=== PATIENT | female | born 1980 | race Caucasian/White ===

== ENCOUNTER 2019-12-25 09:01 | Outpatient (RCR) | payer OTHER, SELFPAY ==
[2019-12-11 10:09] VITALS: BP 109/58; PULSE 85
[2019-12-25 09:30] VITALS: BP 111/61; PULSE 88
== END 2020-01-01 07:40 | disposition home or self-care (01) ==
LOC: ANHOBOP 09:01
PROVIDERS: PCP Family Medicine; Visit Provider Student in an Organized Health Care Education/Training Program
DX: O09.513 Supervision of elderly primigravida, third trimester (principal); Z3A.36 36 weeks gestation of pregnancy; Z3A.38 38 weeks gestation of pregnancy
CPT/HCPCS: 59025; A9270; J2210; J2590

== ENCOUNTER 2019-12-29 12:36 | Outpatient (CLI) | payer OTHER, SELFPAY ==
[2019-12-29 13:00] LABS: Hematocrit 32.4 % (37.0-47.0); Hemoglobin 10.6 g/dL (12.0-15.0); Mean Corpuscular HGB Conc 32.7 g/dl (32-36); Mean Corpuscular Hemoglobin 29.5 pg (26-34); Mean Corpuscular Volume 90.3 fl (80-100); Mean Platelet Volume 9.5 fl (7.4-10.4); Platelet Count Result 214 k/mm3 (150-375); Red Blood Count 3.59 M/mm3 (4.2-5.4); Red Cell Distribution Width 13.1 % (11.5-14.5); White Blood Count 9.7 K/mm3 (4.5-10.0)
[2019-12-31 07:27] LABS: Rapid Plasma Reagin Non-Reactive (NonReactive)
== END 2019-12-29 12:37 | disposition home or self-care (01) ==
LOC: ANHLAB 12:39
PROVIDERS: PCP Family Medicine; Visit Provider Obstetrics & Gynecology
DX: O34.219 Maternal care for unspecified type scar from previous cesarean delivery (principal); Z01.812 Encounter for preprocedural laboratory examination; Z3A.00 Weeks of gestation of pregnancy not specified
CPT/HCPCS: 36415; 85027; 86592; 86850; 86900; 86901

== ENCOUNTER 2019-12-31 05:40 | Inpatient (IN) | payer OTHER, SELFPAY ==
--- NOTE | 2019-12-01 14:14 | PC.NURSE ---
VERIFIED WITH OR SCHEDULE AND PATIENT--C/S ON 12/31/19 AT 0730 PATIENT GIVEN REQUISITION FOR LAB DRAW ON 12/29/19 PATIENT STATES SHE IS A LITTLE ANXIOUS ABOUT HAVING A SPINAL BECAUSE ONE SPINAL SHE COULD LIFT HER LEGS OFF THE TABLE AND ONE SPINAL ONLY LASTED WHILE IN SURGERY ROOM
--- NOTE | 2019-12-30 17:22 | WPDANESEPPF ---
Anes - Initial Pre Proc Eval Procedure: Operation Date: 12/31/19 07:30 Proposed Procedures p Repeat Section - Tariq Guevara MD Date/Time: 12/30/19 17:22 Surgeon: Tariq Guevara MD Pre Op Diagnosis: SECTION Patient Data Age: 39 Gender: F Height: Weight: Allergies Allergy/AdvReac Type Severity Reaction Status Date / Time oxycodone AdvReac Mild HALLUCINATIONS Verified 12/25/19 08:22 HEADACHES Home Medications Medication Instructions Recorded Confirmed Type vits 75-iron 28 mg-folic 1 pkg PO DAILY #60 each 09/17/19 12/31/19 Rx acid 800 mcg-omega-3 oral combo pack albuterol sulfate 90 mcg/actuation 1 puff INHALATION Q4H PRN #1 device 10/08/19 12/31/19 Rx aerosol inhaler Patient hx anesthesia problems: other (2 spinals did not work as well) Family hx anesthesia problems: none PMFSH Past Medical History Medical History Asthma Surgical History Surgical History (Updated 12/30/19 @ 17:21 by John Cohen DO) History of x4 Social History Social History Smoking status: Never smoker Second hand tobacco smoke exposure: No Alcohol intake: current Substance use: never Spiritual care concerns: No Anes - Eval Final PreProcedure Day of Procedure 12/30/19 17:23 Patient weight: overweight Heart: regular rate and rhythm Lungs: clear to auscultation and normal air movement Airway: Mallampati scale class II Neurological: alert and oriented Last oral intake: >/= 8 hours ASA classification: II Emergent: no Anesthetic plan: proceed Anesthesia type and monitoring: regional spinal and standard monitoring Informed Consent: The patient's anesthetic plan and its attendant risks and benefits were discussed with the patient/family/POA. Questions were solicited and answers provided to the satisfaction of the patient/family/POA.
[2019-12-31] VITALS (82 sets, daily range): BP systolic 75–138; BP diastolic 39–85; PULSE 57–115; RESP 11–25; TEMP 36.6–38.3; O2SAT 81–100; BMI 26.8
--- NOTE | ~2019-12-31 | CT_ITS ---
EXAMINATION: CT abdomen pelvis w con DATE: 01/03/2020 10:33 INDICATION: Left hip pain. TECHNIQUE: Computed tomography (CT) of the abdomen and pelvis was performed with 100 mL Omnipaque 350 intravenous contrast. Automated exposure control and iterative reconstruction technique were employe d. The dose-length product was 1041.21 mGy-cm. COMPARISON: None. FINDINGS: The visualized portions of the lung bases demonstrate mild atelectasis. There are trace ple ural effusions. The heart size is normal. No pericardial effusion. The liver, gallbladder, spleen, pa ncreas, and adrenal glands are normal. The kidneys demonstrate striated nephrograms, consistent with pyelonephritis. There is mild right hydronephrosis and hydroureter. The uterus is enlarged, consisten t with recent . The endometrial complex measures 10 mm in thickness. There is low-attenuatio n involving the low anterior uterine segment measuring 5.7 x 1.9 x 2.3 cm, likely changes of section and hematoma. There is fluid and gas involving the rectus sheath in the area of the recent s urgery. The fluid collection measures 8.8 x 1.3 x 13.2 cm. There are no dilated loops of bowel. The a ppendix is not visualized. There are no pathologically enlarged lymph nodes. There is trace pelvic as cites. There is 6 degrees lumbar dextrocurvature. IMPRESSION: 1. 8.8 x 1.3 x 13.2 cm fluid collection involving the rectus sheath, likely hematoma. Changes of cesa rean section and hematoma involving the low anterior uterine segment. 2. Bilateral striated nephrograms, consistent with pyelonephritis. 3. Mild right hydronephrosis and hydroureter secondary to the enlarged uterus. Reviewed, dictated and finalized at location A. ER PRODUCTION MACHINE OPERATOR IMPRESSION: 1. 8.8 x 1.3 x 13.2 cm fluid collection involving the rectus sheath, likely hem atoma. Changes of section and hematoma involving the low anterior uter ine segment. 2. Bilateral striated nephrograms, consistent with pyelonephritis. 3. Mild right hydronephrosis and hydroureter secondary to the enlarged uterus.
--- NOTE | ~2019-12-31 | XR_ITS ---
EXAMINATION: XR chest 2V 01/01/2020 17:01 INDICATION: Shortness of breath and cough. History of asthma. PROCEDURE: 2 view chest COMPARISON: No prior studies for comparison. FINDINGS: The lungs are clear. The cardiomediastinal silhouette is within normal limits. There are no pleural effusions. There is no pneumothorax suspected. IMPRESSION: 1: NO ACUTE CARDIOPULMONARY DISEASE. Reviewed, dictated and finalized at location A. HAND
[2019-12-31] MEDS: ceFAZolin 2 GM/D5W 50 ML 2 GM/50 ML BAG IVPB (06:24)
[2019-12-31] MEDS: LACTATED RINGERS 1,000 ML 125 ML IV CONT (06:25)
--- NOTE | 2019-12-31 06:47 | LDADM ---
This patient, Shabana Case, was admitted to Labor/Delivery/Recovery 120 on 12/31/19 at 05:40. Plans for labor, pain management and were discussed with patient. Patient/family oriented to hospital policies and general routines including ID bracelet, bed and alarms, visiting hours, pain management, procedures, bathroom and other care routines, personal items, smoking policy, room service/diet and guest tray routines, security routines, and visiting hours. Patient/Family are encouraged to report perceived risks to care and to ask questions if they do not understand what they are told or what they should do. See OBIX for further documentation.
--- NOTE | 2019-12-31 07:18 | PM.IMHP ---
H&P: HPI History of Present Illness Chief complaint: SECTION Narrative: Shabana Case is a 39 year old female admitted for elective repeat cesearean section. PNC significant for advanced Maternal age, 4 prior cesearean sections, history of labor at 34 weeks with 1st . She declined Keerthi a for this . She has a history of mild asthma which is not bothered her during the . Ob labs first-trimester hemoglobin hematocrit 12 and 37 platelets 230, hepatitis-B surface antigen negative, hepatitis-C antibody negative, hemoglobin electrophoresis normal hemoglobin a, in NIPT normal, UA negative, HIV negative, rubella immune, blood type B positive, antibody screen negative, vitamin-D 38, varicella immune, group B strep negative, 3rd trimester HIV and RPR negative. She was recommended for repeat . Does not desire permanent sterilization at the time. Her is considering a vasectomy. Review of Systems Review of Systems: All systems reviewed & are unremarkable except as noted in HPI and below Constitutional: Constitutional: Reports no additional constitutional complaints and Denies headache(s) Eyes: Eyes: Denies spots in vision ENT: Reports system reviewed and no additional complaints, except as documented and Denies headache(s) Cardiovascular: Cardiovascular: Denies chest pain and Denies dyspnea Respiratory: Respiratory: Denies dyspnea Gastrointestinal: Gastrointestinal: Reports no additional gastrointestinal complaints Genitourinary: Genitourinary: Reports amenorrhea Musculoskeletal: Musculoskeletal: Reports no additional musculoskeletal complaints Integumentary/Breasts: Skin/Breast: Denies breast mass and Denies rash Neurologic: Denies headache(s) Psychiatric: Psychiatric: Reports no additional psychiatric complaints [facility] Past Medical History Medical History Asthma Delivery by elective section Surgical History Surgical History History of x4 Family History Family History Mother Hypertension Family history of elevated blood lipids Family history of diabetes mellitus in first degree relative Grandparent Cerebrovascular accident, Onset Age: 70 Family history of coronary artery disease, Onset Age: 85 Diabetes mellitus Social History Social History Smoking status: Never smoker Second hand tobacco smoke exposure: No Alcohol intake: current Substance use: never Spiritual care concerns: No Meds Home Medications and Allergies Home Medications Medication Instructions Recorded Confirmed Type vits 75-iron 28 mg-folic 1 pkg PO DAILY #60 each 09/17/19 12/31/19 Rx acid 800 mcg-omega-3 oral combo pack albuterol sulfate 90 mcg/actuation 1 puff INHALATION Q4H PRN #1 device 10/08/19 12/31/19 Rx aerosol inhaler Allergies Allergy/AdvReac Type Severity Reaction Status Date / Time oxycodone AdvReac Mild HALLUCINATIONS Verified 12/25/19 08:22 HEADACHES Vital Signs Vital Signs - 24 hr 12/31/19 06:32 Pulse Rate 102 H Blood Pressure 131/77 Exam Const: General: no acute distress HENMT: Head: normocephalic and atraumatic Eyes: General: appearance normal, both eyes and all related structures Resp: Effort & Inspection: normal respiratory effort Cardio: Rate: regular rate GI: Other: Gravid no fundal tenderness no right upper quadrant pain Skin: General skin exam: no rashes or lesions noted Neuro: Cognition (Neuro): normal cognition Extrem: General: normal to inspection Psych: Mental Status: mental status grossly normal Assessment and Plan Assessment and plan (1) Delivery by elective section: Code(s): O82 - Encounter for donna
--- NOTE | 2019-12-31 07:20 | PM.IMHP ---
H&P: HPI History of Present Illness Chief complaint: SECTION Narrative: Shabana Case is a 39 year old female Review of Systems Review of Systems: All systems reviewed & are unremarkable except as noted in HPI and below Constitutional: Constitutional: Reports no additional constitutional complaints and Denies headache(s) Eyes: Eyes: Denies spots in vision ENT: Reports system reviewed and no additional complaints, except as documented and Denies headache(s) Cardiovascular: Cardiovascular: Denies chest pain and Denies dyspnea Respiratory: Respiratory: Denies dyspnea Gastrointestinal: Gastrointestinal: Reports no additional gastrointestinal complaints Genitourinary: Genitourinary: Reports amenorrhea Musculoskeletal: Musculoskeletal: Reports no additional musculoskeletal complaints Integumentary/Breasts: Skin/Breast: Denies breast mass and Denies rash Neurologic: Denies headache(s) Psychiatric: Psychiatric: Reports no additional psychiatric complaints PMFSH Past Medical History Medical History Asthma Delivery by elective section Surgical History Surgical History History of x4 Family History Family History Mother Hypertension Family history of elevated blood lipids Family history of diabetes mellitus in first degree relative Grandparent Cerebrovascular accident, Onset Age: 70 Family history of coronary artery disease, Onset Age: 85 Diabetes mellitus Social History Social History Smoking status: Never smoker Second hand tobacco smoke exposure: No Alcohol intake: current Substance use: never Spiritual care concerns: No Meds Home Medications and Allergies Home Medications Medication Instructions Recorded Confirmed Type vits 75-iron 28 mg-folic 1 pkg PO DAILY #60 each 09/17/19 12/31/19 Rx acid 800 mcg-omega-3 oral combo pack albuterol sulfate 90 mcg/actuation 1 puff INHALATION Q4H PRN #1 device 10/08/19 12/31/19 Rx aerosol inhaler Allergies Allergy/AdvReac Type Severity Reaction Status Date / Time oxycodone AdvReac Mild HALLUCINATIONS Verified 12/25/19 08:22 HEADACHES Vital Signs Vital Signs - 24 hr 12/31/19 06:32 Pulse Rate 102 H Blood Pressure 131/77
[2019-12-31 07:32] LABS: HIV 1/2 Ab P24 Ag Result Negative (Negative)
--- NOTE | 2019-12-31 09:18 | PM.PROC ---
Procedure Note - Detailed Date of procedure: 01/02/20 Pre-op diagnosis: SECTION 1. Elective repeat cesearean section. Post-op diagnosis: same Procedure performed: Repeat low transverse cesearean section Description of procedure: After informed consent was obtained patient was taken to the operating room and adequate spinal anesthesia was administered. She was placed in supine position and prepped and draped in sterile fashion. heart tones were auscultated prior to sterile draping. Attention was turned to the abdomen and a Pfannenstiel skin incision was made along her prior Pfannenstiel scar. The scarred subcutaneous tissue was dissected from the fascia with scalpel and cautery. The fascia was incised in the midline and the scarred fascia was dissected from the rectus muscle bilaterally with Christianson scissors. The fascia was from rectus muscle superiorly and inferiorly bluntly and sharply. The midline was identified and the peritoneum was entered with metzenbaum scissors.. The uterus had an omental adhesion band to the anterior abdominal wall, this was lysed with cautery. The pelvic organs were visualized. The lower uterine segment and vesico-uterine peritoneum was visualized. The bladder had some scarring to lower uterine segment. A bladder flap was made. A low-transverse uterine incision was made and was extended bluntly. The amniotic cavity was entered. A large amount of clear fluid was noted. The incision was extended bluntly and the head and the rest the infant was delivered. . The was vigorously crying upon delivery. The cord was doubly clamped and cut and the infant was handed to nursery staff in attendance. Cord segment was obtained for cord gases. Cord blood was obtained. The placenta was removed manually. The uterine cavity was sponge curetted. The uterus was noted to have good tone. The uterus was exteriorized the incision of the uterus was closed in a running locking fashion with 0 Vicryl and a 2nd umbricating stitch of 0 Vicryl. Two figure of eight stitches were used at the mid right of uterine incision for hemostasis. Hemostasis was noted. The posterior cul-de-sac was irrigated. Uterus was placed back into the abdomen. The paracolic gutters were irrigated the uterine incision was inspected again and noted to be hemostatic. Urine was noted to be clear in the schneider bag. Interceed adhesion barrier was placed at the lower uterine segment and anterior uterus. The omentum was placed over the site. The peritoneum was approximated in the midline with several sutures of [id number] of 3 O Vicryl. The fascia was closed in a running fashion with 0 Vicryl with 2 sutures. Hemostasis was noted. Paracolic gutters were irrigated. The subcutaneous tissue was irrigated hemostasis obtained with cautery. The skin incision was closed with ethel. Mepiliex dressing was applied. The uterus was firm at -2 umbilicus. The QBL was 775cc. Sponge count was correct x3. The patient tolerated procedure well and was taken to recovery in stable condition. Anesthesia: spinal Surgeon: Tariq Guevara MD Estimated blood loss (mL): 775 Urine output (mL): 100 Drains: No Packing: No Pathology: none sent Complications: No immediate complications Condition: stable Disposition: floor (Recovery) Findings: Normal uterus, small adhesion of omentum to anterior abdominal wall, normal ovaries, male , 8lb8oz.
[2019-12-31] MEDS: MORPHINE SULFATE 2 MG/ML INJ IV PUSH (10:06)
--- NOTE | 2019-12-31 10:55 | PC.NURSE ---
Patient transferred to post room #290 per stretcher from labor and delivery. Support person present. Oriented to unit, room, information board, rooming in, admission packet and security measures. Patient verbalizes understanding.
[2019-12-31] MEDS: HYDROMORPHONE HCL 1 MG/ML INJ 0.2 MG IV PUSH ×2 (11:48→16:25)
[2019-12-31] MEDS: KETOROLAC 30 MG/ML VIAL (*BKC) IV PUSH (13:52)
[2019-12-31] MEDS: DEXTROSE 5%/0.45% SOD CHL 1,000 ML 125 ML IV CONT (15:23)
--- NOTE | 2019-12-31 16:40 | PC.NURSE ---
Dr. Guevara at bedside regarding pt severe pain and distended, firm abdomen. Pt blood pressures are low and she feels like she is going to pass out. Pt very anxious. Oxygen given at 3L per nasal cannula and head of bed lowered. Medications and labs ordered and consent signed for exploratory laparotomy per Dr. Guevara's orders. Anesthesia notified by Dr. Guevara.
--- NOTE | 2019-12-31 16:51 | PM.OBPNVD ---
OB - PN: Subj Subjective Date/time seen: 12/31/19 16:51 Interval history: I was called due to patient having acute severe pain. It started approximately 1635. She called out for pain. She was pale. O2sat 100. Pulse 70. On exam her abdomen is distended , tender diffusely,uterus palpable at Umb, there is some bloody drainage from her right side of incision. OB - PN: Obj Data Labs Labs: Laboratory Results - last 24 hr 12/31/19 06:29 HIV 1&2 Ab/P24 Ag 4thGn Negative OB - PN A/P Assessment and Plan (1) Post-op pain: Code(s): G89.18 - Other acute postprocedural pain Status: Acute Assessment and Plan: She was informed that I suspect she may have some intraabdominal bleeding and recommned to take her for exploratory laparotomy. Discussed risk benefit of proceeding with this and risk of continued undiagnosed bleeding if not done. She agrees to exploratory laparotomy. Time Spent With Patient Time: Total time spent is greater than 50% in coordination of care (as documented) at patient's floor/unit and/or counseling patient: Exam : Other: incision small amount drainage, red on dressing.\ Abdomen, distended, guarding. Ext nontender.
[2019-12-31] MEDS: MIDAZOLAM HCL 2 MG/2 ML VIAL 1 MG IV PUSH (16:55)
[2019-12-31 16:56] LABS: Basophils Absolute Auto 0.1 K/mm3 (0.0-0.1); Basophils Percent Auto 0.4 % (0.2-1.2); Eosinophils Percent Auto 0.1 % (0-4.4); Hematocrit 26.7 % (37.0-47.0); Hemoglobin 8.9 g/dL (12.0-15.0); Immature Granulocyte Absolute 0.21 K/mm3 (0.00-0.031); Immature Granulocyte Percent A 1.1 % (0-0.5); Lymphocytes Absolute Auto 1.97 K/mm3 (0.9-3.2); Lymphocytes Percent Auto 9.9 % (18.3-44.2); Mean Corpuscular HGB Conc 33.3 g/dl (32-36); Mean Corpuscular Hemoglobin 30.1 pg (26-34); Mean Corpuscular Volume 90.2 fl (80-100); Mean Platelet Volume 10.1 fl (7.4-10.4); Monocytes Absolute Auto 1.6 K/mm3 (0.1-0.6); Neutrophils Absolute Auto 16.1 K/mm3 (1.3-6.7); Neutrophils Percent Auto 80.5 % (45.5-73.1); Platelet Count Result 254 k/mm3 (150-375); Red Blood Count 2.96 M/mm3 (4.2-5.4); Red Cell Distribution Width 13.2 % (11.5-14.5)
--- NOTE | 2019-12-31 17:14 | WPDANESEFPP ---
Anes - Eval Final PreProcedure Day of Procedure 12/31/19 17:14 Patient weight: overweight Heart: regular rate and rhythm Lungs: clear to auscultation and normal air movement Airway: Mallampati scale class II Neurological: alert and oriented Last oral intake: >/= 8 hours ASA classification: II Emergent: yes Anesthetic plan: proceed Anesthesia type and monitoring: general ETT and standard monitoring Other findings: Exploratory lap for post op bleeding Informed Consent: The patient's anesthetic plan and its attendant risks and benefits were discussed with the patient/family/POA. Questions were solicited and answers provided to the satisfaction of the patient/family/POA.
--- NOTE | 2019-12-31 17:22 | PC.NURSE ---
Patient transferred to PACU recovery per bed. Report given to Dr. Cohen. Dr. Guevara aware that patient has been transferred.
[2019-12-31] MEDS: ceFAZolin SODIUM 1 GM VIAL 2 GM IV PUSH (17:36)
[2019-12-31] MEDS: METHYLERGONOVINE MALEATE 0.2 MG/ML VIAL IV PUSH (18:11)
[2019-12-31] MEDS: TRANEXAMIC ACID 1,000 MG/10 ML AMPUL 1000 MG IV PUSH ×2 (18:11→19:05)
[2019-12-31] MEDS: OXYTOCIN 10 UNITS/ML VIAL IM (18:27)
[2019-12-31] MEDS: MISOPROSTOL 200 MCG TABLET 1000 MCG XX (18:28)
[2019-12-31 19:02] LABS: Prothrombin Time 13.3 Seconds (11.1-14.7)
[2019-12-31 19:03] LABS: Partial Thromboplastin Time 27.7 SECONDS (22.3-36.8)
[2019-12-31] MEDS: SODIUM CHLORIDE 0.9% IV 1,000 ML 100 ML IV CONT (19:56)
--- NOTE | 2019-12-31 20:39 | PM.PROC ---
Procedure Note - Detailed Date of procedure: 01/02/20 Pre-op diagnosis: SECTION Severe post op pain Post-op diagnosis: other ( intraabdominal hemorrhage) Procedure performed: Exploratory laparotomy Description of procedure: After informed consent was obtained. Patient was taken to operating room and general endotracheal anesthesia was performed. She was prepped and draped in sterile fashion. Attention was turned to the abdomen. [place] were removed. Fascial stitches were removed. Upon removing the fascial stitches, large amount of blood clot diffusely on the rectus muscle. Large amount of dark blood was evacuated. The peritoneal stiches were removed. There was large amount of clot and dark blood intraabdominally. This was evacuated. The uterus was palpated and was very soft. There was no active bleeding from the incision. The uterus was exteriorized and manual compression of uterus was applied to help with tone. At that time a large clot was felt to pass to the lower uterine segment. The uterine incision sutures were removed and large amount of blood and clot was removed. The uterus was sponge curretted. The tone continued to be boggy. She was given 0.2mg IM Methergine. She was also given 1000mg of TXA when the large clot was seen after fascial sutures were removed. She was given 1000ug cytotec and also was given 10units of Pitocin IM. Prior to this a B koroma stitch with 0 monopryl, was performed and the tone improved after 30minutes with using the above medication. The uterine incision was closed during this with figure of eight sutures and a running suture of 0 vicryl. Hemostasis was noted at the site. The of uterus was improved. There continue to be dark blood collecting in the right paracolic gutters. Clots were removed from the posterior culdesac and paracolic gutters. The peritoneal edges were inspected. There was noted to be a slow ooze along the right peritoneal edge. There was some small vessels there which did not appear to be actively bleeding. They were cauterized. She was placed in mild trendelenburg position to better visualize the area at the right upper peritoneal edge which had small accumulation of dark blood. Pressure was applied to area with sponge stick. Surgisil was applied to this area and it was visualized for 5minutes and no active bleeding. Sponge count was correct. The uterine tone continued to be firm. Surgisil was placed at the right muscle belly. Hemostasis noted. The fascia was closed with two sutures of O Vicryl. Hemostasis was noted. The skin incision was irrigated. Hemostasis obtained with cautery and the skin was closed with ethel. Sponge count correct x 2. The patient was extubated in OR and taken to recovery in stable condition. It was estimated that 3Liters of blood was it muscle and intraabdominal area. Anesthesia: GETA Surgeon: Tariq Guevara MD Frequency Checker: Alfonso Burns Estimated blood loss (mL): 3,000 IV fluids (mL): 2,000 (1300cc crystalloid, 700cc PRBC, she received 2 units PRBC in OR) Urine output (mL): 250 Drains: No Packing: No Pathology: none sent Complications: No immediate complications Condition: stable Disposition: PACU Findings: Will send to ICU after recovery due to large EBL.
[2019-12-31] MEDS: HYDROMORPHONE HCL 1 MG/ML INJ 0.25 MG IV PUSH (21:33)
[2019-12-31 22:13] LABS: Hematocrit 38.6 % (37.0-47.0); Hemoglobin 13.2 g/dL (12.0-15.0); Mean Corpuscular HGB Conc 34.2 g/dl (32-36); Mean Corpuscular Hemoglobin 29.9 pg (26-34); Mean Corpuscular Volume 87.3 fl (80-100); Mean Platelet Volume 9.7 fl (7.4-10.4); Platelet Count Result 173 k/mm3 (150-375); Red Blood Count 4.42 M/mm3 (4.2-5.4); Red Cell Distribution Width 13.2 % (11.5-14.5); White Blood Count 25.8 K/mm3 (4.5-10.0)
[2019-12-31 22:28] LABS: INR 1.1; Prothrombin Time 13.5 Seconds (11.1-14.7)
[2019-12-31 22:34] LABS: Band Neutrophils Percent 15 % (0-6); Lymphocytes Absolute Manual 1.54 K/mm3 (1.1-4.5); Monocytes Absolute Manual 0.25 K/mm3 (0.1-0.90); Monocytes Percent Manual 1 % (3-9); Neutrophils Absolute Manual 23.99 K/mm3 (1.7-7.2); Neutrophils Percent Manual 78 % (46-73); Platelet Estimate Adequate (Adequate); Total Cells Counted 100
[2019-12-31 22:57] LABS: Fibrinogen 218 mg/dl (215-510)
[2019-12-31] MEDS: SODIUM CHLORIDE 0.9% IV 1,000 ML 125 ML IV CONT (23:29)
[2019-12-31] MEDS: SODIUM CHLORIDE 0.9% IV 250 ML 30 ML IV CONT (23:30)
[2020-01-01] VITALS (15 sets, daily range): BP systolic 107–134; BP diastolic 51–76; PULSE 75–105; RESP 13–23; TEMP 36.6–38.2; O2SAT 96–100
[2020-01-01] MEDS: MORPHINE SULFATE 2 MG/ML INJ IV PUSH (01:38)
[2020-01-01] MEDS: METHYLERGONOVINE MALEATE 0.2 MG/ML VIAL IM ×3 (01:38→13:50)
[2020-01-01] MEDS: MORPHINE SULFATE 4 MG/ML INJ IV PUSH ×2 (04:20→07:51)
[2020-01-01 04:36] LABS: Hematocrit 35.7 % (37.0-47.0); Hemoglobin 12.6 g/dL (12.0-15.0); Mean Corpuscular HGB Conc 35.3 g/dl (32-36); Mean Corpuscular Hemoglobin 30.2 pg (26-34); Mean Corpuscular Volume 85.6 fl (80-100); Mean Platelet Volume 9.6 fl (7.4-10.4); Platelet Count Result 162 k/mm3 (150-375); Red Blood Count 4.17 M/mm3 (4.2-5.4); Red Cell Distribution Width 13.5 % (11.5-14.5); White Blood Count 23.4 K/mm3 (4.5-10.0)
[2020-01-01 04:47] LABS: INR 1.1; Prothrombin Time 14.1 Seconds (11.1-14.7)
[2020-01-01 04:48] LABS: Partial Thromboplastin Time 24.8 SECONDS (22.3-36.8)
[2020-01-01 05:03] LABS: Blood Urea Nitrogen 14 mg/dL (7-17); Calcium 7.4 mg/dL (8.4-10.2); Carbon Dioxide 19 mmol/L (22-30); Chloride 103 mmol/L (98-107); Estimated CRCL calculation 127 ml/min; Estimated Glomerular Filt Rate > 60; Glucose 111 mg/dL (65-105); Potassium 3.3 mmol/L (3.4-5.0); Sodium 130 mmol/L (137-145)
[2020-01-01] MEDS: SODIUM CHLORIDE 0.9% IV 1,000 ML 125 ML IV CONT (07:56)
[2020-01-01] MEDS: MAGNESIUM SULF 2 GM/WATER 50ML 2 GM/50 ML BAG IVPB (07:57)
[2020-01-01 09:18] LABS: Hematocrit 34.6 % (37.0-47.0); Hemoglobin 11.9 g/dL (12.0-15.0); Mean Corpuscular HGB Conc 34.4 g/dl (32-36); Mean Corpuscular Hemoglobin 30.1 pg (26-34); Mean Corpuscular Volume 87.4 fl (80-100); Mean Platelet Volume 9.9 fl (7.4-10.4); Platelet Count Result 156 k/mm3 (150-375); Red Blood Count 3.96 M/mm3 (4.2-5.4); Red Cell Distribution Width 13.9 % (11.5-14.5); White Blood Count 23.9 K/mm3 (4.5-10.0)
--- NOTE | 2020-01-01 09:48 | WPDANLDNPN2 ---
Anes-Prog Note L&D-Neuraxial Date/Time: 01/01/20 09:48 Neuraxial medications: intrathecal PF morphine Opiod-related complaints: none Patient feedback: Patient satisfied with post-operative pain management.
--- NOTE | 2020-01-01 09:48 | WPDANLDPN2 ---
Anes-Prog Note L&D Date/Time: 01/01/20 09:48 Comfortable throughout: section Neuraxial method: spinal Epidural/Spinal procedure site: clean & non-tender Neuro status: Neuro function grossly intact. Cardiovascular status: other (patient had a 3L blood loss postoperatively, was taken back to the OR for exploration, and given 2 units of PRBC. Patient taken to ICU overnight for close monitoring.) Respiratory status: normal Airway patency: baseline Mental status: baseline Post-Op hydration status: normal Vital Signs: Last Vital Signs Temp 36.9 C 01/01/20 08:00 Pulse 75 01/01/20 08:00 Resp 14 01/01/20 08:00 BP 116/61 01/01/20 08:00 Pulse Ox 99 01/01/20 08:00 I/O: Intake & Output 12/31/19 01/01/20 01/01/20 23:59 07:59 15:59 Intake Total 2800 1280 Output Total 75 550 Balance 6468 730 Patient feedback: Patient satisfied with anesthetic care.
--- NOTE | 2020-01-01 09:59 | PM.OBPNVD ---
OB - PN: Subj Subjective Date/time seen: 12/31/19 1645 Interval history: I was called due to patient having acute severe pain. It started approximately 1635. She called out for pain. She was pale. O2sat 100. Pulse 70. On exam her abdomen is distended , tender diffusely,uterus palpable at Umb, there is some bloody drainage from her right side of incision. OB - PN: Obj Data Labs CBC & Chem 7: 01/02/20 04:13 01/02/20 04:13 Labs: Laboratory Results - last 24 hr 12/29/19 12/29/19 12/29/19 12:42 12:42 12:42 WBC RBC Hgb Hct MCV MCH MCHC RDW Plt Count MPV Immature Gran % (Auto) Neut % (Auto) Lymph % (Auto) [place] % (Auto) Eos % (Auto) Baso % (Auto) Lymph # (Auto) [place] # (Auto) Eos # (Auto) Baso # (Auto) Abs Immat Gran (auto) Absolute Neuts (auto) Absolute Nucleated RBC Total Counted Neutrophils % (Manual) Band Neutrophils % Lymphocytes % (Manual) Monocytes % (Manual) Nucleated RBC % Abs Neuts (Manual) Abs Lymphs (Manual) Abs Monocytes (Manual) Platelet Estimate PT INR APTT Fibrinogen Sodium Potassium Chloride Carbon Dioxide BUN Creatinine Estim Creat Clear Calc Estimated GFR Glucose Calcium Crossmatch See Detail See Detail See Detail 12/29/19 12/31/19 12/31/19 12:42 16:50 18:49 WBC 20.0 H RBC 2.96 L Hgb 8.9 L Hct 26.7 L MCV 90.2 MCH 30.1 MCHC 33.3 RDW 13.2 Plt Count 254 MPV 10.1 Immature Gran % (Auto) 1.1 H Neut % (Auto) 80.5 H Lymph % (Auto) 9.9 L [place] % (Auto) 8.0 Eos % (Auto) 0.1 Baso % (Auto) 0.4 Lymph # (Auto) 1.97 [place] # (Auto) 1.6 H Eos # (Auto) 0.0 Baso # (Auto) 0.1 Abs Immat Gran (auto) 0.21 H Absolute Neuts (auto) 16.1 H Absolute Nucleated RBC 0.0 Total Counted Neutrophils % (Manual) Band Neutrophils % Lymphocytes % (Manual) Monocytes % (Manual) Nucleated RBC % 0.0 Abs Neuts (Manual) Abs Lymphs (Manual) Abs Monocytes (Manual) Platelet Estimate PT 13.3 INR 1.0 APTT 27.7 Fibrinogen Sodium Potassium Chloride Carbon Dioxide BUN Creatinine Estim Creat Clear Calc Estimated GFR Glucose Calcium Crossmatch See Detail 12/31/19 12/31/19 01/01/20 22:06 22:06 04:22 WBC 25.8 H RBC 4.42 Hgb 13.2 D Hct 38.6 MCV 87.3 MCH 29.9 MCHC 34.2 RDW 13.2 Plt Count 173 MPV 9.7 Immature Gran % (Auto) Not Reportable Neut % (Auto) Not Reportable Lymph % (Auto) Not Reportable [place] % (Auto) Not Reportable Eos % (Auto) Not Reportable Baso % (Auto) Not Reportable Lymph # (Auto) Not Reportable [place] # (Auto) Not Reportable Eos # (Auto) Not Reportable Baso # (Auto) Not Reportable Abs Immat Gran (auto) Not Reportable Absolute Neuts (auto) Not Reportable Absolute Nucleated RBC Not Reportable Total Counted 100 Neutrophils % (Manual) 78 H Band Neutrophils % 15 H Lymphocytes % (Manual) 6.0 L Monocytes % (Manual) 1 L Nucleated RBC % Not Reportable Abs Neuts (Manual) 23.99 H Abs Lymphs (Manual) 1.54 Abs Monocytes (Manual) 0.25 Platelet Estimate Adequate PT 13.5 INR 1.1 APTT 24.0 Fibrinogen 218 Sodium 130 L Potassium 3.3 L Chloride 103 Carbon Dioxide 19 L BUN 14 Creatinine 0.50 L Estim Creat Clear Calc 127 Estimated GFR > 60 Glucose 111 H Calcium 7.4 L Crossmatch 01/01/20 01/01/20 01/01/20 04:22 04:22 08:58 WBC 23.4 H 23.9 H RBC 4.17 L 3.96 L Hgb 12.6 11.9 L Hct 35.7 L 34.6 L MCV 85.6 87.4 MCH 30.2 30.1 MCHC 35.3 34.4 RDW 13.5 13.9 Plt Count 162 156 MPV 9.6 9.9 Immature Gran % (Auto) Neut % (Auto) Lymph % (Auto) [place] % (Auto) Eos % (Auto) Baso % (Auto) Lymph # (A
--- NOTE | 2020-01-01 09:59 | PM.OBPNVD ---
OB - PN: Subj Subjective Date/time seen: 01/01/20 09:59 Interval history: She states still has significant pain with [employer], Morphine helps some. No SOB or chest pain. Has not sat up in chair. Tolerating ice chips. OB - PN: Obj Data Labs CBC & Chem 7: 01/02/20 04:13 01/02/20 04:13 Labs: Laboratory Results - last 24 hr 12/29/19 12/29/19 12/29/19 12:42 12:42 12:42 WBC RBC Hgb Hct MCV MCH MCHC RDW Plt Count MPV Immature Gran % (Auto) Neut % (Auto) Lymph % (Auto) [place] % (Auto) Eos % (Auto) Baso % (Auto) Lymph # (Auto) [place] # (Auto) Eos # (Auto) Baso # (Auto) Abs Immat Gran (auto) Absolute Neuts (auto) Absolute Nucleated RBC Total Counted Neutrophils % (Manual) Band Neutrophils % Lymphocytes % (Manual) Monocytes % (Manual) Nucleated RBC % Abs Neuts (Manual) Abs Lymphs (Manual) Abs Monocytes (Manual) Platelet Estimate PT INR APTT Fibrinogen Sodium Potassium Chloride Carbon Dioxide BUN Creatinine Estim Creat Clear Calc Estimated GFR Glucose Calcium Crossmatch See Detail See Detail See Detail 12/29/19 12/31/19 12/31/19 12:42 16:50 18:49 WBC 20.0 H RBC 2.96 L Hgb 8.9 L Hct 26.7 L MCV 90.2 MCH 30.1 MCHC 33.3 RDW 13.2 Plt Count 254 MPV 10.1 Immature Gran % (Auto) 1.1 H Neut % (Auto) 80.5 H Lymph % (Auto) 9.9 L [place] % (Auto) 8.0 Eos % (Auto) 0.1 Baso % (Auto) 0.4 Lymph # (Auto) 1.97 [place] # (Auto) 1.6 H Eos # (Auto) 0.0 Baso # (Auto) 0.1 Abs Immat Gran (auto) 0.21 H Absolute Neuts (auto) 16.1 H Absolute Nucleated RBC 0.0 Total Counted Neutrophils % (Manual) Band Neutrophils % Lymphocytes % (Manual) Monocytes % (Manual) Nucleated RBC % 0.0 Abs Neuts (Manual) Abs Lymphs (Manual) Abs Monocytes (Manual) Platelet Estimate PT 13.3 INR 1.0 APTT 27.7 Fibrinogen Sodium Potassium Chloride Carbon Dioxide BUN Creatinine Estim Creat Clear Calc Estimated GFR Glucose Calcium Crossmatch See Detail 12/31/19 12/31/19 01/01/20 22:06 22:06 04:22 WBC 25.8 H RBC 4.42 Hgb 13.2 D Hct 38.6 MCV 87.3 MCH 29.9 MCHC 34.2 RDW 13.2 Plt Count 173 MPV 9.7 Immature Gran % (Auto) Not Reportable Neut % (Auto) Not Reportable Lymph % (Auto) Not Reportable [place] % (Auto) Not Reportable Eos % (Auto) Not Reportable Baso % (Auto) Not Reportable Lymph # (Auto) Not Reportable [place] # (Auto) Not Reportable Eos # (Auto) Not Reportable Baso # (Auto) Not Reportable Abs Immat Gran (auto) Not Reportable Absolute Neuts (auto) Not Reportable Absolute Nucleated RBC Not Reportable Total Counted 100 Neutrophils % (Manual) 78 H Band Neutrophils % 15 H Lymphocytes % (Manual) 6.0 L Monocytes % (Manual) 1 L Nucleated RBC % Not Reportable Abs Neuts (Manual) 23.99 H Abs Lymphs (Manual) 1.54 Abs Monocytes (Manual) 0.25 Platelet Estimate Adequate PT 13.5 INR 1.1 APTT 24.0 Fibrinogen 218 Sodium 130 L Potassium 3.3 L Chloride 103 Carbon Dioxide 19 L BUN 14 Creatinine 0.50 L Estim Creat Clear Calc 127 Estimated GFR > 60 Glucose 111 H Calcium 7.4 L Crossmatch 01/01/20 01/01/20 01/01/20 04:22 04:22 08:58 WBC 23.4 H 23.9 H RBC 4.17 L 3.96 L Hgb 12.6 11.9 L Hct 35.7 L 34.6 L MCV 85.6 87.4 MCH 30.2 30.1 MCHC 35.3 34.4 RDW 13.5 13.9 Plt Count 162 156 MPV 9.6 9.9 Immature Gran % (Auto) Neut % (Auto) Lymph % (Auto) [place] % (Auto) Eos % (Auto) Baso % (Auto) Lymph # (Auto) [place] # (Auto) Eos # (Auto) Baso # (Auto) Abs Immat Gran (auto) Absolute Neuts (auto) Absolute Nucleated RBC Total Coun
[2020-01-01] MEDS: HYDROMORPHONE HCL 4 MG TABLET PO ×3 (11:03→19:55)
--- NOTE | 2020-01-01 12:58 | WPDCNINT ---
Assessment and Plan Assessment and plan (1) Postoperative hemorrhage: Status: Acute Assessment and Plan: post , complained of acute abdominal pain, abdominal was distended, bloody drainage was noted from the right side of the incision. Patient was taken for ex lap for suspected intra-abdominal bleeding, Which was managed. patient and EBL of 3000 mL for which she was transfer the ICU for closer monitoring. Received a total of 4 units of packed RBCs. Hemoglobin has been stable - patient is hemodynamically stable - no bleeding noted from the incision site - plug saw operator following the patient (2) Status post section: Code(s): Z98.891 - History of uterine scar from previous surgery Status: Acute Assessment and Plan: status post on 12/31/2019 (3) Post-op pain: Code(s): G89.18 - Other acute postprocedural pain Status: Acute Assessment and Plan: postop acute abdominal pain related to intra-abdominal bleeding (4) DVT prophylaxis: Code(s): Z29.9 - Encounter for prophylactic measures, unspecified Status: Acute Assessment and Plan: SCDs Additional Plan discussed with the patient and updated her with her condition and plan of care. Discuss with Dr. Guevara code status: Full code Critical care time spent: 39 minutes Due to a high probability of clinically significant, life threatening deterioration, the patient required my highest level of preparedness to intervene emergently and I personally spent this critical care time directly and personally managing the patient. This critical care time included obtaining a history; examining the patient; pulse oximetry; ordering and review of studies; arranging urgent treatment with development of a management plan; evaluation of patient's response to treatment; frequent reassessment; and discussions with other providers. It was exclusive of separately billable procedures and treating other patients and teaching time. Please see Assessment and Plan section and the rest of the note for further information on patient assessment and treatment Lamina Searcher Consult Note Consult date: 01/01/20 Time Seen: 06:51 Reason for consult: post intra-abdominal hemorrhage requiring multiple units of packed RBCs HPI: Shabana Case is a 39 year old female with significant past medical history of , asthma was transferred OBGYN. Patient underwent a on 12/31/2019 after which she continue to complain of severe pain in her abdomen. Patient dropped her hemoglobin, abdominal was distended and diffusely tender with bloody drainage from right side of the incision. Patient was taken back to the OR for ex lap and was found to have intra-abdominal bleeding with estimated EBL of 3000 mL. Patient did drop her hemoglobin to 8.9, received 4 units of packed RBCs in all. Patient was transferred to the ICU for closer monitoring due to significant EBL of 3000 mL. patient seen examined this morning. According the nurses, patient has been requiring a lot of pain medication to control her pain. Hemoglobin has been stable. Patient is hemodynamically stable, good O2 sats on room air and adequate urine output. Denies any chest pain, shortness of breath with complains of abdominal pain. Review of Systems Review of Systems: All systems reviewed & are unremarkable except as noted in HPI and below PMFSH Past Medical History Medical History (Updated 01/01/20 @ 13:18 by Sharmaine Jean MD) Asthma Delivery by elective section Surgical History Surgical History (Updated 01/01/20 @ 10:06 by Tariq Guevara MD) History of x4 Status post section Family History Family History Mother Hypertension Family history of elevated blood lipids Family history of diabetes mellitus in first degree relative Grandparent Cere
--- NOTE | 2020-01-01 16:37 | PM.OBPNVD ---
OB - PN: Subj Subjective Date/time seen: 01/01/20 16:37 Interval history: Called due to elevated temperature and patient stated felt like chest congestion. Resp increased. Will order CXR. Will start Gent and Clinda. OB - PN: Obj Data Labs CBC & Chem 7: 01/01/20 08:58 01/01/20 04:22 Labs: Laboratory Results - last 24 hr 12/29/19 12/29/19 12/29/19 12:42 12:42 12:42 WBC RBC Hgb Hct MCV MCH MCHC RDW Plt Count MPV Immature Gran % (Auto) Neut % (Auto) Lymph % (Auto) [place] % (Auto) Eos % (Auto) Baso % (Auto) Lymph # (Auto) [place] # (Auto) Eos # (Auto) Baso # (Auto) Abs Immat Gran (auto) Absolute Neuts (auto) Absolute Nucleated RBC Total Counted Neutrophils % (Manual) Band Neutrophils % Lymphocytes % (Manual) Monocytes % (Manual) Nucleated RBC % Abs Neuts (Manual) Abs Lymphs (Manual) Abs Monocytes (Manual) Platelet Estimate PT INR APTT Fibrinogen Sodium Potassium Chloride Carbon Dioxide BUN Creatinine Estim Creat Clear Calc Estimated GFR Glucose Calcium Crossmatch See Detail See Detail See Detail 12/29/19 12/31/19 12/31/19 12:42 16:50 18:49 WBC 20.0 H RBC 2.96 L Hgb 8.9 L Hct 26.7 L MCV 90.2 MCH 30.1 MCHC 33.3 RDW 13.2 Plt Count 254 MPV 10.1 Immature Gran % (Auto) 1.1 H Neut % (Auto) 80.5 H Lymph % (Auto) 9.9 L [place] % (Auto) 8.0 Eos % (Auto) 0.1 Baso % (Auto) 0.4 Lymph # (Auto) 1.97 [place] # (Auto) 1.6 H Eos # (Auto) 0.0 Baso # (Auto) 0.1 Abs Immat Gran (auto) 0.21 H Absolute Neuts (auto) 16.1 H Absolute Nucleated RBC 0.0 Total Counted Neutrophils % (Manual) Band Neutrophils % Lymphocytes % (Manual) Monocytes % (Manual) Nucleated RBC % 0.0 Abs Neuts (Manual) Abs Lymphs (Manual) Abs Monocytes (Manual) Platelet Estimate PT 13.3 INR 1.0 APTT 27.7 Fibrinogen Sodium Potassium Chloride Carbon Dioxide BUN Creatinine Estim Creat Clear Calc Estimated GFR Glucose Calcium Crossmatch See Detail 12/31/19 12/31/19 01/01/20 22:06 22:06 04:22 WBC 25.8 H RBC 4.42 Hgb 13.2 D Hct 38.6 MCV 87.3 MCH 29.9 MCHC 34.2 RDW 13.2 Plt Count 173 MPV 9.7 Immature Gran % (Auto) Not Reportable Neut % (Auto) Not Reportable Lymph % (Auto) Not Reportable [place] % (Auto) Not Reportable Eos % (Auto) Not Reportable Baso % (Auto) Not Reportable Lymph # (Auto) Not Reportable [place] # (Auto) Not Reportable Eos # (Auto) Not Reportable Baso # (Auto) Not Reportable Abs Immat Gran (auto) Not Reportable Absolute Neuts (auto) Not Reportable Absolute Nucleated RBC Not Reportable Total Counted 100 Neutrophils % (Manual) 78 H Band Neutrophils % 15 H Lymphocytes % (Manual) 6.0 L Monocytes % (Manual) 1 L Nucleated RBC % Not Reportable Abs Neuts (Manual) 23.99 H Abs Lymphs (Manual) 1.54 Abs Monocytes (Manual) 0.25 Platelet Estimate Adequate PT 13.5 INR 1.1 APTT 24.0 Fibrinogen 218 Sodium 130 L Potassium 3.3 L Chloride 103 Carbon Dioxide 19 L BUN 14 Creatinine 0.50 L Estim Creat Clear Calc 127 Estimated GFR > 60 Glucose 111 H Calcium 7.4 L Crossmatch 01/01/20 01/01/20 01/01/20 04:22 04:22 08:58 WBC 23.4 H 23.9 H RBC 4.17 L 3.96 L Hgb 12.6 11.9 L Hct 35.7 L 34.6 L MCV 85.6 87.4 MCH 30.2 30.1 MCHC 35.3 34.4 RDW 13.5 13.9 Plt Count 162 156 MPV 9.6 9.9 Immature Gran % (Auto) Neut % (Auto) Lymph % (Auto) [place] % (Auto) Eos % (Auto) Baso % (Auto) Lymph # (Auto) [place] # (Auto) Eos # (Auto) Baso # (Auto) Abs Immat Gran (auto) Absolute Neuts (auto) Absolute Nucleated RBC Total
[2020-01-01] MEDS: CLINDAMYCIN 900 MG/NS 50 ML 900 MG/50 ML PIGGYBACK 50 MG IVPB ×2 (17:23→22:05)
[2020-01-01] MEDS: GENTAMICIN 80MG/SOD CHL 50 ML 80 MG/50 ML BAG 100 MG IVPB (18:35)
[2020-01-01] MEDS: ACETAMINOPHEN 325 MG TABLET 650 MG PO (22:09)
[2020-01-01] MEDS: FUROSEMIDE INJ 40 MG/4 ML VIAL IV PUSH (23:15)
[2020-01-02] MEDS: HYDROMORPHONE HCL 4 MG TABLET PO ×6 (00:07→21:56)
[2020-01-02] MEDS: GENTAMICIN 80MG/SOD CHL 50 ML 80 MG/50 ML BAG 100 MG IVPB ×2 (02:07→10:58)
[2020-01-02] MEDS: ACETAMINOPHEN 325 MG TABLET 650 MG PO ×6 (02:32→21:57)
[2020-01-02 04:00] VITALS: BP 103/48; PULSE 88; RESP 15; TEMP 36.4; O2SAT 98
[2020-01-02 05:55] LABS: Basophils Absolute Auto 0.1 K/mm3 (0.0-0.1); Basophils Percent Auto 0.4 % (0.2-1.2); Eosinophils Absolute Auto 0.2 K/mm3 (0-0.3); Hematocrit 27.6 % (37.0-47.0); Hemoglobin 9.4 g/dL (12.0-15.0); Immature Granulocyte Absolute 0.18 K/mm3 (0.00-0.031); Lymphocytes Absolute Auto 2.27 K/mm3 (0.9-3.2); Lymphocytes Percent Auto 12.3 % (18.3-44.2); Mean Corpuscular HGB Conc 34.1 g/dl (32-36); Mean Corpuscular Hemoglobin 30.1 pg (26-34); Mean Corpuscular Volume 88.5 fl (80-100); Mean Platelet Volume 10.3 fl (7.4-10.4); Monocytes Absolute Auto 1.8 K/mm3 (0.1-0.6); Monocytes Percent Auto 9.7 % (2.6-8.5); Neutrophils Percent Auto 75.6 % (45.5-73.1); Platelet Count Result 164 k/mm3 (150-375); Red Blood Count 3.12 M/mm3 (4.2-5.4); Red Cell Distribution Width 14.3 % (11.5-14.5); White Blood Count 18.5 K/mm3 (4.5-10.0)
[2020-01-02 06:14] LABS: Albumin Level 2.2 g/dL (3.5-5.1); Alkaline Phosphatase 84 U/L (38-126)
[2020-01-02 06:15] LABS: Alanine Aminotransferase 13 U/L (4-35); Aspartate Amino Transferase 30 U/L (14-36); Bilirubin,Total < 0.1 mg/dL (0.2-1.3); Blood Urea Nitrogen 8 mg/dL (7-17); Calcium 7.4 mg/dL (8.4-10.2); Carbon Dioxide 23 mmol/L (22-30); Chloride 102 mmol/L (98-107); Estimated CRCL calculation 127 ml/min; Estimated Glomerular Filt Rate > 60; Glucose 90 mg/dL (65-105); Potassium 3.3 mmol/L (3.4-5.0); Sodium 134 mmol/L (137-145)
--- NOTE | 2020-01-02 06:30 | PC.NURSE ---
PT introductions made and plan of care discussed per post op csection, pain management, breast feeding, daily care activities. PT verbalized understanding of such care.
[2020-01-02] MEDS: CLINDAMYCIN 900 MG/NS 50 ML 900 MG/50 ML PIGGYBACK 50 MG IVPB ×2 (06:44→15:29)
[2020-01-02] MEDS: DEXTROSE 5%/0.45% SOD CHL 1,000 ML 125 ML (06:46)
[2020-01-02 07:30] VITALS: BP 116/55; PULSE 85; RESP 16; TEMP 36.6; O2SAT 100
[2020-01-02 09:00] VITALS: PULSE 85; RESP 16; O2SAT 100
[2020-01-02] MEDS: MULTIVIT/MIN/PREN/FOL AC/IRON TABLET 1 TAB PO (09:17)
[2020-01-02] MEDS: POLYSACCHARIDE IRON COMPLEX 150 MG CAPSULE ×2 (09:18→18:00)
[2020-01-02] MEDS: SIMETHICONE 80 MG TAB.CHEW ×3 (09:18→18:00)
[2020-01-02] MEDS: DOCUSATE SODIUM 100 MG CAPSULE ×2 (09:18→18:00)
--- NOTE | 2020-01-02 09:43 | PM.OBPNVD ---
OB - PN: Subj Subjective Date/time seen: 01/02/20 09:43 Interval history: She states pain 2-3/10. She states positive flatus today once. Has not sat up in chair today. Tolerating full liquid. No nausea. baby. No chest pain or SOB. No leg pain. OB - PN: Obj Data Labs CBC & Chem 7: 01/02/20 04:13 01/02/20 04:13 Labs: Laboratory Results - last 24 hr 01/02/20 01/02/20 04:13 04:13 WBC 18.5 H RBC 3.12 L Hgb 9.4 L Hct 27.6 L MCV 88.5 MCH 30.1 MCHC 34.1 RDW 14.3 Plt Count 164 MPV 10.3 Immature Gran % (Auto) 1.0 H Neut % (Auto) 75.6 H Lymph % (Auto) 12.3 L [place] % (Auto) 9.7 H Eos % (Auto) 1.0 Baso % (Auto) 0.4 Lymph # (Auto) 2.27 [place] # (Auto) 1.8 H Eos # (Auto) 0.2 Baso # (Auto) 0.1 Abs Immat Gran (auto) 0.18 H Absolute Neuts (auto) 14.0 H Absolute Nucleated RBC 0.0 Nucleated RBC % 0.0 Sodium 134 L Potassium 3.3 L Chloride 102 Carbon Dioxide 23 BUN 8 D Creatinine 0.50 L Estim Creat Clear Calc 127 Estimated GFR > 60 Glucose 90 Calcium 7.4 L Total Bilirubin < 0.1 L AST 30 ALT 13 Alkaline Phosphatase 84 Total Protein 5.0 L Albumin 2.2 L Imaging Radiologist's impression: Impressions Chest X-Ray 01/01/20 17:03 IMPRESSION: 1: NO ACUTE CARDIOPULMONARY DISEASE. OB - PN A/P Assessment and Plan (1) Status post section: Code(s): Z98.891 - History of uterine scar from previous surgery Status: Acute Assessment and Plan: POD 2 s/p repeat cesearean section. POD 2 s/p exploratory laparotomy for post op hemorrhage and evacuation of clot. s/p 4u PRBCs. Hemoglobin decreased this am but this is what I suspect she will gallo. There is no signs of acute bleeding. Vitals stable. Good urine output. Will recheck CBC for stabilization. She is tolerating full liquid. Will advance diet. Will have her sit in chair and bedside commode. Hypokalemic- will add oral Potassium. (2) Postoperative hemorrhage: Status: Acute Assessment and Plan: Recheck CBC coags this afternoon. (3) Postoperative fever: Code(s): R50.82 - Postprocedural fever Status: Acute Assessment and Plan: Triple antibiotics started yesterday at time of fever. Temperature decreasing. WBC decreasing. Continue IV antibiotics until 24 afebrile. Time Spent With Patient Time: Total time spent is greater than 50% in coordination of care (as documented) at patient's floor/unit and/or counseling patient: Exam Const: General: no acute distress and alert Resp: Effort & Inspection: normal respiratory effort Other: clear bilaterally Cardio: Other: RRR GI: Other: +BS, hypoactive, mild distension, uterus -2 umb firm Extrem: Other: 1+ edema bilat
[2020-01-02] MEDS: POTASSIUM CHLORIDE 20 MEQ PACKET (FOR LIQUID) 40 MEQ PO ×2 (10:58→22:01)
[2020-01-02 11:15] VITALS: BP 118/58; PULSE 86; RESP 16; TEMP 36.6; O2SAT 99
--- NOTE | 2020-01-02 12:30 | PC.NURSE ---
Addendum entered by Rosario Mcallisetr RN 01/02/20 16:24: Observed may have a tight frenulum Original Note: Consult with pt., Reviewed feeding cues, frequencies, duration of feedings, feeding elimination flow sheet, and signs of adequate intake. Demonstrated stimulation techniques to wake infant for feeding. Assisted with infant to breast. Reviewed positioning/alignment in football, holding breast in C hold and guided asymmetrical latch on. Discussed rational for each. With in a few attempts, infant was able to latch correctly. Infant nursed eagerly, with steady draws and frequent swallowing noted. Reviewed signs of a correct latch, effective nursing and suck swallow ratio. was able to maintain latch without discomfort to mother. Nipple care reviewed. Suggested to hold breast during entire feeding to assist with maintaining deep latch, and to stimulate to keep awake and interested in feeding. Instructed mother to call out for RN assistance if she is unable to latch infant for feeding or she has discomfort with nursing. Instructed feeding should be initiated three hours from start of last feeding or if feeding cues are noted before. Mother voiced understanding of information shared. Mother voices concerns with supplementing infant and milk supply. Reviewed her situation with large EBL and may have a delay in milk supply, infant requires supplement at this time. Mother states she wishes to initiate pumping, advised to pump 5 minutes after breastfeedings.
[2020-01-02] MEDS: LANOLIN (LANSINOH) 7.5 GM CREAM 1 APPLIC TOPICAL (15:34)
[2020-01-02 16:00] VITALS: BP 97/54; PULSE 94; RESP 20; TEMP 37.2; O2SAT 100
[2020-01-02 19:24] LABS: Basophils Percent Auto 0.2 % (0.2-1.2); Eosinophils Absolute Auto 0.4 K/mm3 (0-0.3); Eosinophils Percent Auto 2.5 % (0-4.4); Hematocrit 23.4 % (37.0-47.0); Hemoglobin 7.8 g/dL (12.0-15.0); Immature Granulocyte Percent A 0.7 % (0-0.5); Lymphocytes Absolute Auto 2.41 K/mm3 (0.9-3.2); Lymphocytes Percent Auto 16.5 % (18.3-44.2); Mean Corpuscular HGB Conc 33.3 g/dl (32-36); Mean Corpuscular Hemoglobin 30.4 pg (26-34); Mean Corpuscular Volume 91.1 fl (80-100); Mean Platelet Volume 9.6 fl (7.4-10.4); Monocytes Absolute Auto 1.4 K/mm3 (0.1-0.6); Monocytes Percent Auto 9.9 % (2.6-8.5); Neutrophils Absolute Auto 10.2 K/mm3 (1.3-6.7); Neutrophils Percent Auto 70.2 % (45.5-73.1); Platelet Count Result 175 k/mm3 (150-375); Red Blood Count 2.57 M/mm3 (4.2-5.4); Red Cell Distribution Width 14.5 % (11.5-14.5); White Blood Count 14.6 K/mm3 (4.5-10.0)
[2020-01-02 19:44] LABS: Partial Thromboplastin Time 28.2 SECONDS (22.3-36.8)
[2020-01-02 19:47] LABS: D Dimer 2.79 ug/mL (<0.48)
[2020-01-02 19:49] LABS: Fibrinogen 422 mg/dl (215-510)
[2020-01-02 20:55] VITALS: BP 102/51; PULSE 90; RESP 16; TEMP 36.6; O2SAT 100
[2020-01-02] MEDS: SIMETHICONE 80 MG TAB.CHEW PO (21:56)
[2020-01-03] VITALS (9 sets, daily range): BP systolic 97–113; BP diastolic 55–65; PULSE 74–95; RESP 17–18; TEMP 36.3–36.8; O2SAT 100
[2020-01-03 01:20] LABS: Basophils Percent Auto 0.3 % (0.2-1.2); Eosinophils Absolute Auto 0.4 K/mm3 (0-0.3); Hematocrit 23.9 % (37.0-47.0); Hemoglobin 7.8 g/dL (12.0-15.0); Immature Granulocyte Percent A 0.8 % (0-0.5); Lymphocytes Percent Auto 17.9 % (18.3-44.2); Mean Corpuscular HGB Conc 32.6 g/dl (32-36); Mean Corpuscular Hemoglobin 29.5 pg (26-34); Mean Corpuscular Volume 90.5 fl (80-100); Mean Platelet Volume 9.5 fl (7.4-10.4); Monocytes Absolute Auto 1.2 K/mm3 (0.1-0.6); Monocytes Percent Auto 9.1 % (2.6-8.5); Neutrophils Absolute Auto 8.9 K/mm3 (1.3-6.7); Neutrophils Percent Auto 68.9 % (45.5-73.1); Platelet Count Result 166 k/mm3 (150-375); Red Blood Count 2.64 M/mm3 (4.2-5.4); Red Cell Distribution Width 14.3 % (11.5-14.5); White Blood Count 12.9 K/mm3 (4.5-10.0)
[2020-01-03] MEDS: ACETAMINOPHEN 325 MG TABLET 650 MG PO ×3 (03:10→12:40)
[2020-01-03] MEDS: HYDROMORPHONE HCL 4 MG TABLET PO ×3 (03:11→13:56)
--- NOTE | 2020-01-03 07:30 | PC.NURSE ---
PT introductions made and plan of care discussed per post op c section, pain management, daily care activities and breast /bottle feeding baby. PT verbalized understanding of such care.
--- NOTE | 2020-01-03 08:34 | PM.OBPNVD ---
OB - PN: Subj Subjective Date/time seen: 01/03/20 08:34 Interval history: She states pain is better. She has tolerated regular diet. Positive flatus. She has left hip pain, states it feels stiff when she tried to walk last night to restroom. Feels SOB with ambulating. No chest pain. OB - PN: Obj Data Labs CBC & Chem 7: 01/03/20 01:05 01/03/20 09:04 Labs: Laboratory Results - last 24 hr 01/02/20 01/02/20 01/02/20 19:18 19:18 19:18 WBC 14.6 H RBC 2.57 L Hgb 7.8 L Hct 23.4 L MCV 91.1 MCH 30.4 MCHC 33.3 RDW 14.5 Plt Count 175 MPV 9.6 Immature Gran % (Auto) 0.7 H Neut % (Auto) 70.2 Lymph % (Auto) 16.5 L [place] % (Auto) 9.9 H Eos % (Auto) 2.5 Baso % (Auto) 0.2 Lymph # (Auto) 2.41 [place] # (Auto) 1.4 H Eos # (Auto) 0.4 H Baso # (Auto) 0.0 Abs Immat Gran (auto) 0.10 H Absolute Neuts (auto) 10.2 H Absolute Nucleated RBC 0.0 Nucleated RBC % 0.0 PT 13.0 INR 1.0 APTT 28.2 Fibrinogen 422 Cancelled D-Dimer 2.79 H Cancelled 01/03/20 01:05 WBC 12.9 H RBC 2.64 L Hgb 7.8 L Hct 23.9 L MCV 90.5 MCH 29.5 MCHC 32.6 RDW 14.3 Plt Count 166 MPV 9.5 Immature Gran % (Auto) 0.8 H Neut % (Auto) 68.9 Lymph % (Auto) 17.9 L [place] % (Auto) 9.1 H Eos % (Auto) 3.0 Baso % (Auto) 0.3 Lymph # (Auto) 2.30 [place] # (Auto) 1.2 H Eos # (Auto) 0.4 H Baso # (Auto) 0.0 Abs Immat Gran (auto) 0.10 H Absolute Neuts (auto) 8.9 H Absolute Nucleated RBC 0.0 Nucleated RBC % 0.0 PT INR APTT Fibrinogen D-Dimer OB - PN A/P Assessment and Plan (1) Status post section: Code(s): Z98.891 - History of uterine scar from previous surgery Status: Acute Assessment and Plan: POD## s/p repeat cesearean section and subsequent postop hemorrhage POD3 s/p exploratory laparotomy. She is eating regular food. Has been up in chair. Starting to ambulate. If still has left hip discomfort, no redness or significant swelling in lower extremity or thigh area, I suspect this is muscle skeletal etiology, did discuss her risk of blood clots in pelvic and lower extremity and how that is evaluated. After I left patient told nurse that she felt that her discomfort was due to feeling pain in foot and not hip and she did not want the test or doppler. Her O2Sats normal. No SOB in bed, states with ambulating, which I informed her the SOB is common with severe anemia. (2) Postoperative hemorrhage: Status: Acute Assessment and Plan: Severe anemia. Hemoglobin stabilized. She is SOB with limited mobility to the restroom. I recommend transfusing at least one unit PRBCs which I informed her should help her SOB with ambulating. Recheck BMP today. (3) Postoperative fever: Code(s): R50.82 - Postprocedural fever Status: Acute Assessment and Plan: She been afebrile. IV antibiotics discontinued after 24 hours afebrile. On oral medication. Time Spent With Patient Time: Total time spent is greater than 50% in coordination of care (as documented) at patient's floor/unit and/or counseling patient: Review of Systems Cardiovascular: Cardiovascular: Denies chest pain Respiratory: Respiratory: Reports dyspnea Exam Const: General: no acute distress, alert and awake Resp: Effort & Inspection: normal respiratory effort Auscultation: clear to auscultation bilaterally Cardio: Rate: regular rate Rhythm: regular rhythm GI: Inspection: other (mild distenstion, stapels intact, no drainage or erythema) Auscultation: normal bowel sounds Extrem: General: other (negative homans bilat, no erythema tr edema bilat ULE)
[2020-01-03 09:32] LABS: Blood Urea Nitrogen 11 mg/dL (7-17); Calcium 8.4 mg/dL (8.4-10.2); Carbon Dioxide 25 mmol/L (22-30); Chloride 103 mmol/L (98-107); Estimated CRCL calculation 155 ml/min; Estimated Glomerular Filt Rate > 60; Glucose 102 mg/dL (65-105); Potassium 3.9 mmol/L (3.4-5.0); Sodium 137 mmol/L (137-145)
[2020-01-03] MEDS: POTASSIUM CHLORIDE 20 MEQ PACKET (FOR LIQUID) 40 MEQ PO (09:52)
[2020-01-03] MEDS: SIMETHICONE 80 MG TAB.CHEW PO ×4 (09:53→21:17)
[2020-01-03] MEDS: CEPHALEXIN 500 MG CAPSULE PO ×2 (09:53→21:16)
[2020-01-03] MEDS: MULTIVIT/MIN/PREN/FOL AC/IRON TABLET 1 TAB PO (09:53)
[2020-01-03] MEDS: DOCUSATE SODIUM 100 MG CAPSULE PO ×2 (09:53→17:11)
[2020-01-03] MEDS: POLYSACCHARIDE IRON COMPLEX 150 MG CAPSULE PO ×2 (09:54→17:11)
--- NOTE | 2020-01-03 10:00 | PC.NURSE ---
PT to CT scan via wheelchair
--- NOTE | 2020-01-03 10:40 | PC.NURSE ---
PT returned from CT scan via wheelchair
[2020-01-03] MEDS: SODIUM CHLORIDE 0.9% IV 250 ML 30 ML IV CONT (12:04)
--- NOTE | 2020-01-03 13:00 | PC.NURSE ---
Mother called out for assist with feeding. Assisted with infant to breast. Assisted mother will pillows for support. Reviewed positioning/alignment, holding breast and asymmetrical latch on. Infant was able to latch correctly. Infant nursed eagerly, with steady draws and frequent swallowing noted. Reviewed signs of a correct latch, effective nursing and suck swallow ratio. was able to maintain latch without discomfort to mother. Nipple care reviewed. Instructed mother to call out for RN assistance if she is unable to latch for feeding or she has discomfort with nursing. Instructed feeding should be initiated three hours from start of last feeding or if feeding cues are noted before. Mother voiced understanding of information shared.
--- NOTE | 2020-01-03 16:05 | PC.NURSE ---
Mother called out for assist with latching. Mother up in chair reporting struggling with latch. Reviewed positioning/alignment in cross cradle, holding breast in U hold and guided asymmetrical latch on. was able to latch correctly with first attempt. nursed eagerly, with steady draws and occasional swallowing noted. Reviewed signs of a correct latch, effective nursing and suck swallow ratio. was able to maintain latch without discomfort to mother. Nipple care reviewed.
[2020-01-03] MEDS: IBUPROFEN 600 MG TABLET PO (17:11)
[2020-01-03 19:38] LABS: Add Urine Microscopic? YES; Appearance Urine Clear (Clear); Bilirubin Urine Negative (Negative); Blood Urine 1+ (Negative); Color Urine Yellow (Yellow); Glucose Urine UA Negative (Negative); Ketones Urine Negative (Negative); Leukocyte Esterase Ur Negative LEU/UL (Negative); Mucus Urine Rare /lpf; Nitrate Urine Negative (Negative); Protein Urine Negative (Negative); Specific Grav Ur 1.018 (1.001-1.035); Squamous Epithelial Cell Urine Rare /hpf (Few); Urobilinogen Urine Negative mg/dL (<2.0)
[2020-01-03 20:10] LABS: Basophils Absolute Auto 0.1 K/mm3 (0.0-0.1); Basophils Percent Auto 0.5 % (0.2-1.2); Eosinophils Absolute Auto 0.4 K/mm3 (0-0.3); Eosinophils Percent Auto 4.3 % (0-4.4); Hemoglobin 9.5 g/dL (12.0-15.0); Immature Granulocyte Absolute 0.09 K/mm3 (0.00-0.031); Immature Granulocyte Percent A 0.9 % (0-0.5); Mean Corpuscular HGB Conc 32.8 g/dl (32-36); Mean Corpuscular Hemoglobin 30.1 pg (26-34); Mean Corpuscular Volume 91.8 fl (80-100); Monocytes Absolute Auto 0.9 K/mm3 (0.1-0.6); Monocytes Percent Auto 8.7 % (2.6-8.5); Neutrophils Absolute Auto 6.4 K/mm3 (1.3-6.7); Neutrophils Percent Auto 63.6 % (45.5-73.1); Platelet Count Result 203 k/mm3 (150-375); Red Blood Count 3.16 M/mm3 (4.2-5.4); Red Cell Distribution Width 14.3 % (11.5-14.5)
[2020-01-04] MEDS: IBUPROFEN 600 MG TABLET PO ×4 (00:10→19:01)
[2020-01-04 08:55] VITALS: BP 103/63; PULSE 76; RESP 16; TEMP 36.6; O2SAT 100
[2020-01-04] MEDS: POLYSACCHARIDE IRON COMPLEX 150 MG CAPSULE PO ×2 (09:26→15:45)
[2020-01-04] MEDS: DOCUSATE SODIUM 100 MG CAPSULE PO ×2 (09:26→15:45)
[2020-01-04] MEDS: MULTIVIT/MIN/PREN/FOL AC/IRON TABLET 1 TAB PO (09:26)
[2020-01-04] MEDS: SIMETHICONE 80 MG TAB.CHEW PO ×3 (09:26→22:06)
[2020-01-04] MEDS: CEPHALEXIN 500 MG CAPSULE PO ×2 (09:27→21:05)
--- NOTE | 2020-01-04 09:30 | PM.OBPNVD ---
OB - PN: Subj Subjective Date/time seen: 01/04/20 09:30 Interval history: She has been ambulating in room. Tolerating reg food. Positive flatus, no BM. No SOB with ambulating. No chest pain, hip stiffness better. OB - PN: Obj Data Labs CBC & Chem 7: 01/03/20 20:02 01/03/20 09:04 Labs: Laboratory Results - last 24 hr 12/29/19 01/03/20 01/03/20 12:42 09:04 09:04 WBC RBC Hgb Hct MCV MCH MCHC RDW Plt Count MPV Immature Gran % (Auto) Neut % (Auto) Lymph % (Auto) [place] % (Auto) Eos % (Auto) Baso % (Auto) Lymph # (Auto) [place] # (Auto) Eos # (Auto) Baso # (Auto) Abs Immat Gran (auto) Absolute Neuts (auto) Absolute Nucleated RBC Nucleated RBC % Sodium 137 Potassium 3.9 Chloride 103 Carbon Dioxide 25 BUN 11 Creatinine 0.40 L Estim Creat Clear Calc 155 Estimated GFR > 60 Glucose 102 Calcium 8.4 Urine Color Urine Appearance Urine pH Ur Specific [place] Urine Protein Urine Glucose (UA) Urine Ketones Ur Blood (Man) Urine Nitrate Urine Bilirubin Urine Urobilinogen Leukocyte Esterase Rfl Urine RBC Urine WBC Ur Squamous Epith Cells Urine Mucus Blood Type B Positive Antibody Screen Negative Crossmatch See Detail See Detail 01/03/20 01/03/20 19:22 20:02 WBC 10.0 RBC 3.16 L Hgb 9.5 L Hct 29.0 L MCV 91.8 MCH 30.1 MCHC 32.8 RDW 14.3 Plt Count 203 MPV 10.0 Immature Gran % (Auto) 0.9 H Neut % (Auto) 63.6 Lymph % (Auto) 22.0 [place] % (Auto) 8.7 H Eos % (Auto) 4.3 Baso % (Auto) 0.5 Lymph # (Auto) 2.20 [place] # (Auto) 0.9 H Eos # (Auto) 0.4 H Baso # (Auto) 0.1 Abs Immat Gran (auto) 0.09 H Absolute Neuts (auto) 6.4 Absolute Nucleated RBC 0.0 Nucleated RBC % 0.0 Sodium Potassium Chloride Carbon Dioxide BUN Creatinine Estim Creat Clear Calc Estimated GFR Glucose Calcium Urine Color Yellow Urine Appearance Clear Urine pH 7.0 Ur Specific [place] 1.018 Urine Protein Negative Urine Glucose (UA) Negative Urine Ketones Negative Ur Blood (Man) 1+ H Urine Nitrate Negative Urine Bilirubin Negative Urine Urobilinogen Negative Leukocyte Esterase Rfl Negative Urine RBC 3-5 H Urine WBC 4-6 H Ur Squamous Epith Cells Rare Urine Mucus Rare Blood Type Antibody Screen Crossmatch Imaging Radiologist's impression: Impressions Abdomen/Pelvis CT 01/03/20 10:36 IMPRESSION: 1. 8.8 x 1.3 x 13.2 cm fluid collection involving the rectus sheath, likely hematoma. Changes of section and hematoma involving the low anterior uterine segment. 2. Bilateral striated nephrograms, consistent with pyelonephritis. 3. Mild right hydronephrosis and hydroureter secondary to the enlarged uterus. OB - PN A/P Assessment and Plan (1) Status post section: Code(s): Z98.891 - History of uterine scar from previous surgery Status: Acute Assessment and Plan: POD#4 s/p elective repeat cesearean section and subsequent exploratory laparotomy for hemorrhage. CT yesterday to rule out pelvic DVT due to upper leg symptoms- findings are consistent with postop changes. She is doing better. Encourage ambulation. UA negative. Will give Miralax and Dulcolax as needed. Anticipate discharge tomorrow. (2) Postoperative hemorrhage: Status: Acute Assessment and Plan: Hemodynamicly stable. Vitals stable. Continue iron therapy. (3) Postoperative fever: Code(s): R50.82 - Postprocedural fever Status: Acute Assessment and Plan: Afebrile. Continue oral antibiotics. Time Spent With Patient Time: Total time spent is greater than 50% in coordination of care (as documented) at patient's floor/unit and/or counseling patient: Exam Const: General: comfortable, no ac
[2020-01-04] MEDS: polyethylene glycoL 3350 17 GM POWD.PACK PO (10:37)
[2020-01-04 20:00] VITALS: BP 121/57; PULSE 84; RESP 16; TEMP 36.6; O2SAT 100
--- NOTE | 2020-01-04 20:00 | PC.NURSE ---
Patient viewed the discharge video Mother & Baby Care, The First Two Weeks . Patient was given the opportunity and encouraged to ask questions. Patient verbalized understanding of information shared and has been given the mother/baby guide for home reference.
[2020-01-05] MEDS: IBUPROFEN 600 MG TABLET PO ×2 (00:46→09:45)
--- NOTE | 2020-01-05 06:30 | PC.NURSE ---
PT introductions made and plan of care discussed per post op c section, pp hemorrhage, pain management, breast/bottle feeding, daily care activities and pending discharge to home. PT verbalized understanding of such care
[2020-01-05] MEDS: polyethylene glycoL 3350 17 GM POWD.PACK PO (09:44)
[2020-01-05] MEDS: MULTIVIT/MIN/PREN/FOL AC/IRON TABLET 1 TAB PO (09:46)
[2020-01-05] MEDS: SIMETHICONE 80 MG TAB.CHEW PO ×2 (09:46→12:30)
[2020-01-05] MEDS: POLYSACCHARIDE IRON COMPLEX 150 MG CAPSULE PO (09:46)
[2020-01-05] MEDS: CEPHALEXIN 500 MG CAPSULE PO (09:46)
[2020-01-05] MEDS: DOCUSATE SODIUM 100 MG CAPSULE PO (09:46)
[2020-01-05 10:30] VITALS: BP 112/60; PULSE 75; PULSE 84; RESP 16; RESP 18; TEMP 36.6; O2SAT 100
--- NOTE | 2020-01-05 10:45 | PM.OBPNVD ---
OB - PN: Subj Subjective Date/time seen: 01/05/20 10:45 Interval history: She has been ambulating. Tolerating reg food. Positive flatus, positive BM. No SOB with ambulating. No chest pain. No leg pain. OB - PN: Obj Data Labs CBC & Chem 7: 01/03/20 20:02 01/03/20 09:04 OB - PN A/P Assessment and Plan (1) Status post section: Code(s): Z98.891 - History of uterine scar from previous surgery Status: Acute Assessment and Plan: POD% s/p elective repeat cesearean section s/p exploratory lapatotomy for hemorrhage. s/p 5uPRBc. She is doing well. Will discharge home. Follow up in one week in office. (2) Postoperative hemorrhage: Status: Acute Assessment and Plan: Hemodynamicly stable. Continue iron therapy. (3) Postoperative fever: Code(s): R50.82 - Postprocedural fever Status: Acute Assessment and Plan: Afebrile. Will continue oral antibiotics. Time Spent With Patient Time: Total time spent is greater than 50% in coordination of care (as documented) at patient's floor/unit and/or counseling patient: Exam Const: General: comfortable, alert and awake Resp: Effort & Inspection: normal respiratory effort Cardio: Peripheral pulses: Peripheral pulses 2+ throughout GI: Other: uterus firm -3um appropriate tenderness, ethel intact no drainage or erythema Extrem: Other: nontender, no edema bilat
--- NOTE | 2020-01-05 10:54 | PM.DS ---
DS: Diagnosis Admitting Diagnosis Admitting Diagnosis: Encounter for elective repeat cesearean section. DS: Summary Hospital Course Reason for hospitalization: Patient was admitted on December 31 for an elective repeat section. She underwent an uncomplicated repeat section. At approximately 4:30 a.m. she started having significant abdominal pain and was pale. Her urine output started to decrease. She was examined and she had an acute abdomen she was informed of the need to do exploratory laparotomy due to concern for abdominal bleeding. She was ordered 2 units of packed red blood cells. She was taken to the operating room she underwent an exploratory laparotomy.After large clots cleared from muscle Her muscle bellies and an area of the peritoneum were diffusely oozing. She has severe uterine atony and tone improved with medication and B-Hickman stitch. Estrimated EBL at that time was approximately 3L. She was recovered in ICU due to large blood loss. She was started on antibiotics. She did have an isolated in ICU. She required a total of 5 units PRBCS. She was transferred to OB floor in evening of POD1. Her hemoglobin nadired at 7.8. She was symptomatic with headache and shortness of breath. She was given an additional unit of PRBC follow up hemoglobin was 9.5. Her symptoms were improved. She had total of 5 units PRBCs. She did complain of upper leg hip once she started ambulating. There was edema bilateral lower extremities which was improved with diuretic. Due to risk of blood clot a CT was performed to rule out pelvic DVT which was ruled out. Expected post op changes were seen on CT. UA negative. She was ambulating prior to dishcarge and her pain was controlled with oral medication. She was discharge to home on post op day 5. Time Spent with Patient Time attestation: Total time spent providing and/or coordinating discharge services: Exam Const: General: cooperative and alert Resp: Effort & Inspection: normal respiratory effort : General: Yes other (incision intact, appropriate tenderness) Extrem: General: other (1-2 +edema bilat nontender bilat) Psych: Appearance: grossly normal Discharge Plan Discharge Attending physician on discharge: Tariq Guevara Consulting providers: Sharmaine Jean ; John Cohen ; Arjun Razo ; Matti Valenzuela V. Discharging Clinician: Tariq Guevara Anticipated Discharge Date/Time: 01/05/20 10:55 Patient Disposition: Home, Self-Care Activity: may shower, no straining, no driving and pelvic rest Diet: regular Wound Care Instructions: keep dressing dry Discharge Instructions: Education: Mom and Baby Guide Given to: Mother Follow-Up: Call your delivering provider's office for an appointment to be seen in: 1 Week Mom and baby should come to the [facility] for the follow-up appointment. Appointment Date/Time: January 07, 2020 at 9:00 am What to expect at your follow-up visit: Blood Pressure Check Call [phone] if you are unable to keep your appointment time. BREAST CARE: 1. Wear a snug supportive bra. 2. For engorgement discomfort: Breast Feeding: A. Apply warm moist washcloths B. Express milk as needed to relieve engorgement C. Wear loose clothing Bottle Feeding: A. May apply ice packs 3. For sore nipples: A. Identify correct latch-on B. Apply warm moist washcloths before and after nursing C. Air dry nipples after nursing D. May apply Lansinoh cream to nipples ABDOMINAL INCISION: (if applicable) 1. Allow incision to air dry 2. Do NOT use lotions for powders on your incision 3. When showering, allow soap and water to run over the incision, but do not wash incision PERINEAL CARE: 1. Until bleeding stops, use your praneeth bottle after urinating 2. Change your pad frequently throughout the day 3. No tub baths until seen b
--- NOTE | 2020-01-05 15:15 | PC.NURSE ---
PT received discharge instructions per protocol and verbalized understanding of such instructions.
--- NOTE | 2020-01-05 15:55 | PC.NURSE ---
PT discharged to home via wheelchair accompanied by both spouse and infant to waiting car. Follow up appts confirmed
[2020-01-07 09:53] VITALS: BP 116/68; PULSE 74; RESP 20; TEMP 36.6
== END 2020-01-05 15:55 | disposition home or self-care (01) | DRG 787 ==
LOC: ANHLDR 05:47 → ANHOB2 10:59 → ANHICU 21:34 → ANHOB2 01-01 21:57
PROVIDERS: Admitting Provider Obstetrics & Gynecology; PCP Family Medicine; Visit Provider Obstetrics & Gynecology
PROC: 10D00Z1 Extraction of Products of Conception, Low, Open Approach (ICD-10-PCS; CPT 59514; principal; 2019-12-31 07:30)
PROC: 0UT94ZZ Resection of Uterus, Percutaneous Endoscopic Approach (ICD-10-PCS; principal; 2019-12-31 18:00)
DX: O34.219 Maternal care for unspecified type scar from previous cesarean delivery (principal); O72.1 Other immediate postpartum hemorrhage; O86.4 Pyrexia of unknown origin following delivery; J45.909 Unspecified asthma, uncomplicated; Z3A.39 39 weeks gestation of pregnancy; Z37.0 Single live birth; Z23 Encounter for immunization
CPT/HCPCS: 36415; 36430; 71046; 74177; 80048; 80053; 81001; 85025; 85027; 85380; 85384; 85610; 85730; 86703; 86850; 86900; 86901; 86920; 86923; A9270; G0432; J0131; J0330; J0690; J1100; J1170; J1200; J1580; J1885; J1940; J2210; J2250; J2270; J2274; J2405; J2590; J2704; J3010; J3475; J3480; J7030; J7040; J7050; J7120; P9016; Q9967

== ENCOUNTER 2020-01-10 16:35 | Outpatient (CLI) | payer OTHER, SELFPAY ==
[2020-01-10 16:50] LABS: Immature Reticulocyte Fraction 19.9 % (3.0-15.9); Reticulocyte Hemoglobin Conten 33.7 pg (28.2-35.7); Reticulocyte Percent 2.02 % (0.7-4.3); Reticulocytes Absolute 0.07 B/L (32.2-175.7)
[2020-01-10 17:18] LABS: Iron 68 ug/dL (37-170)
[2020-01-10 17:28] LABS: Percent Iron Saturation 18 % (20-50)
== END 2020-01-10 16:36 | disposition home or self-care (01) ==
LOC: ANHLAB 16:36
PROVIDERS: PCP Family Medicine; Visit Provider Obstetrics & Gynecology
DX: D64.9 Anemia, unspecified (principal)
CPT/HCPCS: 36415; 82728; 83540; 83550; 85046

== ENCOUNTER 2020-04-30 12:00 | Outpatient (CLI) | payer OTHER, SELFPAY ==
[2020-04-30 12:20] LABS: Hematocrit 38.3 % (37.0-47.0); Mean Corpuscular HGB Conc 33.9 g/dl (32-36); Mean Corpuscular Hemoglobin 29.5 pg (26-34); Mean Platelet Volume 9.8 fl (7.4-10.4); Platelet Count Result 216 k/mm3 (150-375); Red Cell Distribution Width 11.9 % (11.5-14.5); White Blood Count 5.4 K/mm3 (4.5-10.0)
== END 2020-04-30 12:01 | disposition home or self-care (01) ==
PROVIDERS: PCP Family Medicine; Visit Provider Obstetrics & Gynecology
DX: Z39.2 Encounter for routine postpartum follow-up (principal)
CPT/HCPCS: 36415; 85027

== ENCOUNTER → 2021-06-29 12:59 | Outpatient (CLI) | payer OTHER, SELFPAY ==
--- NOTE | ~2021-06-29 | MR_ITS ---
EXAMINATION: MR foot RT wo con DATE: 06/29/2021 13:51 INDICATION: Stress fracture at the right foot presenting with 3 months of worsening pain at the dista l forefoot. TECHNIQUE: Magnetic resonance imaging (MRI) of the right fore/mid foot was performed without intraven ous contrast. Sequences included sagittal T1-weighted FSE, sagittal fluid sensitive FSE STIR, coronal PD-weighted FS FSE, coronal T1-weighted FSE, axial PD-weighted FS FSE, and axial PD-weighted FSE. Ma rker was placed at the site of maximal pain overlying the heads of the second and third metatarsals. COMPARISON: None FINDINGS: Bone alignment is normal. Normal bone marrow signal throughout with no fracture or reactive edema to suggest stress reaction. No pathologic marrow replacing process. Joint spaces are normal with no join t effusions or erosions. The Lisfranc ligament as well as the collateral ligament complex at the meta tarsophalangeal and interphalangeal joints are normal. No intermetatarsal bursitis or abnormal soft t issue density at the intermetatarsal spaces to suggest a Amaral's neuroma. The visualized intrinsic m usculature of the foot as well as the flexor and extensor tendons are normal. IMPRESSION: 1. Normal MRI of the right fore and midfoot. No evident stress reaction/stress fracture or other etio logy identified for reported pain in the region of the second and third metatarsal heads. Reviewed, dictated and finalized at location A. IMPRESSION: 1. Normal MRI of the right fore and midfoot. No evident stress reaction/stress fracture or other etiology identified for reported pain in the region of the se cond and third metatarsal heads.
== END ==
PROVIDERS: Visit Provider Podiatrist Foot & Ankle Surgery
DX: M84.374A Stress fracture, right foot, initial encounter for fracture (principal)
CPT/HCPCS: 73718

== ENCOUNTER → 2023-07-11 15:45 | Outpatient (CLI) | payer OTHER, SELFPAY ==
--- NOTE | ~2023-07-11 | XR_ITS ---
XR chest 2V DATE: 07/11/2023 16:16 INDICATION: Cough TECHNIQUE: 2 views COMPARISON: September AP and lateral chest FINDINGS: Moderate bilateral hyperinflation. No pulmonary infiltrate or consolidation, pleural effusi on or pulmonary vascular congestion or pneumothorax is detected. Normal heart size. No hilar or mediastinal enlargement. Mild levoscoliosis of the thoracic spine. IMPRESSION: Moderate hyperinflation Reviewed, dictated and finalized at location B. IMPRESSION: Moderate hyperinflation
== END ==
PROVIDERS: PCP Clinical Nurse Specialist; Visit Provider Clinical Nurse Specialist
DX: R05.9 Cough, unspecified (principal); R91.8 Other nonspecific abnormal finding of lung field
CPT/HCPCS: 71046

== ENCOUNTER 2023-08-21 15:42 | Emergency (ER) | payer OTHER, SELFPAY ==
--- NOTE | 2023-08-21 15:51 | ED.URI ---
HPI - URI/Sore Throat General Chief Complaint: Upper Respiratory Infection Stated Complaint: Sinus Problems and Congestion Source: patient and RN notes reviewed History of Present Illness HPI Narrative: 43 yo F presents to urgent care with complaints of congestion, sinus pressure, head pressure, sinus tenderness, and headache x 8 days. Pt states she was treated for a sinus infection 1 month ago with doxycycline and had 1 week after that of no symptoms. Pt denies any fevers, chills, chest pain, SOB, or vomiting. Pt takes Claritin, Flonase, Mucinex, and is drinking lots of fluids at home with no relief. Related Data Home Medications Medication Instructions Recorded Confirmed multivitamin 1 tablet PO DAILY 02/04/21 08/21/23 fluticasone propionate 50 1 spray intranasal DAILY 07/21/23 08/21/23 mcg/actuation nasal spray,suspension (Flonase Allergy Relief) loratadine 10 mg chewable tablet 10 mg PO DAILY 07/21/23 08/21/23 (Claritin) Allergies Allergy/AdvReac Type Severity Reaction Status Date / Time acetaminophen [From Percocet] Allergy hallucinati Verified 08/21/23 15:57 ons oxycodone AdvReac Mild HALLUCINATIONS Verified 08/21/23 15:57 HEADACHES montelukast AdvReac Insomnia Verified 08/21/23 15:57 Review of Systems Review of Systems: Pertinent positives and pertinent negatives per HPI. [facility] Past Medical History Medical History Allergies Asthma Delivery by elective section DVT prophylaxis Encounter for supervision of normal in multigravida in third trimester Post-op pain Postoperative fever Postoperative hemorrhage Screening for breast cancer Surgical History Surgical History History of x5 Status post section Family History Family History Mother Hypertension Family history of elevated blood lipids Family history of diabetes mellitus in first degree relative Thyroid disease Grandparent Cerebrovascular accident, Onset Age: 70 Family history of coronary artery disease, Onset Age: 85 Diabetes mellitus Cancer Acute myocardial infarction Thyroid disease Sibling Thyroid disease Social History Social History (Updated 07/21/23 @ 13:50 by Ashley Wynne [facility]) Smoking status: Never smoker Second hand tobacco smoke exposure: No Alcohol intake: current Substance use: never Gender identity (if verbalized by the patient): Female Spiritual care concerns: No Comments At the time of my signature, I reviewed and agree with the nursing past medical, surgical, social, and family history. There is no relevant family history pertinent to the patient complaint. Exam Narrative: GENERAL: This is a well-nourished, well-developed patient, in no apparent distress. HEAD: normocephalic, atraumatic. EYES: Sclera clear/white. Vision is grossly intact. EARS: External ears normal, auditory canals clear and without drainage, TMs normal without perforation. Hearing grossly intact. NOSE: External nose normal with no obvious nasal discharge, + congestion THROAT: Mucous membranes moist, posterior pharynx clear. NECK: Neck supple, non-tender without lymphadenopathy, masses or thyromegaly. CARDIOVASCULAR: Regular rate and rhythm without murmurs, gallops, or rubs. RESPIRATORY: Clear to auscultation. Breath sounds equal bilaterally. No wheezes, rales, or rhonchi. SKIN: warm, intact with no suspicious lesions or rash, good texture and turgor. NEURO: awake, alert, and oriented to person, place and time. There were no obvious focal neurologic abnormalities. EXTREMITIES: No clubbing, cyanosis, or edema. No joint tenderness, effusion, or edema noted. BACK: Nontender without deformity or crepitus. No flank tenderness. Course Course Level of Care: Express Care Visit Vital Signs Vit
[2023-08-21 16:02] VITALS: BP 132/81; PULSE 96; RESP 16; TEMP 36.8; O2SAT 100
== END 2023-08-21 16:41 | disposition home or self-care (01) ==
PROVIDERS: Emergency Provider Nurse Practitioner Family; PCP Internal Medicine
DX: J32.9 Chronic sinusitis, unspecified (principal); Z79.899 Other long term (current) drug therapy
CPT/HCPCS: 99213; G0463

== ENCOUNTER 2024-03-07 12:18 | Outpatient (CLI) | payer OTHER, SELFPAY ==
--- NOTE | ~2024-03-07 | MM_ITS ---
EXAMINATION: MM screening ca BI w ras HISTORY: Screening mammogram TECHNIQUE: Craniocaudal and mediolateral oblique 3-D tomosynthesis images were obtained and synthetic 2-D images were generated. CAD analysis was submitted and interpreted. COMPARISON: No prior mammogram is available for comparison at this institution. BREAST PARENCHYMAL COMPOSITION: There are scattered areas of fibroglandular density. FINDINGS: There is no evidence of suspicious mass, calcification, or architectural distortion to sugg est malignancy in either breast. IMPRESSION: 1. No mammographic evidence of malignancy. 2. Recommend routine screening mammography in one year. BI-RADS Category 1: Negative Reviewed, dictated and finalized at location A.
== END 2024-03-07 12:19 ==
PROVIDERS: PCP Nurse Practitioner Family; Visit Provider Nurse Practitioner Family
DX: Z12.31 Encounter for screening mammogram for malignant neoplasm of breast (principal)
CPT/HCPCS: 77063; 77067

== ENCOUNTER 2025-06-02 18:16 | Emergency (ER) | payer OTHER, SELFPAY ==
--- NOTE | ~2025-06-02 | XR_ITS ---
EXAM: XR foot LT min 3V DATE: 06/02/2025 18:35 HISTORY: kicked rock 1 wk ago. Base of 2 3rd toe pain . COMPARISON: None available. FINDINGS: Normal mineralization. Nondisplaced transverse fracture in the proximal aspect of the left third proximal phalanx. No lytic or blastic lesion. Joint spaces are maintained. No erosion or perio steal change. Soft tissues within normal limits. IMPRESSION: Nondisplaced transverse left third proximal phalanx fracture. Reviewed, dictated and finalized at location K.
[2025-06-02 18:25] VITALS: BP 136/84; PULSE 88; RESP 16; TEMP 36.6; O2SAT 99
--- NOTE | 2025-06-02 18:39 | ED_ITS ---
HPI - Extremity Injury (Lower) General Chief Complaint: Extremity Injury, Lower Stated Complaint: INJURED L FOOT Time Seen by Provider: 06/02/25 18:26 Source: patient and RN notes reviewed Mode of arrival: ambulatory Limitations: no limitations History of Present Illness HPI Narrative: Patient presents today complaining of a left foot injury. She accidentally kicked a large rock 1 week ago while on vacation reporting pain to toes 2 through 4. She has anamaria-taped these toes, wearing a postop shoe, applied ice, and taking ibuprofen, which has helped improve her symptoms but does have some residual bruising, swelling. Currently rates her pain 3/10. Reports some tingling in the 3rd toe. Related Data Home Medications ?Medication ?Instructions ?Recorded ?Confirmed ?Last Taken ?Type multivitamin 1 tablet PO DAILY 02/04/21 12/19/24 Unknown History fluticasone propionate 50 1 spray intranasal DAILY 07/21/23 12/19/24 Unknown History mcg/actuation nasal spray,suspension (Flonase Allergy Relief) loratadine 10 mg chewable tablet 10 mg PO DAILY 07/21/23 12/19/24 Unknown History (Claritin) Allergies Allergy/AdvReac Type Severity Reaction Status Date / Time acetaminophen (From Percocet) Allergy hallucinati Verified 06/02/25 18:18 ons oxycodone AdvReac Mild HALLUCINATIONS Verified 06/02/25 18:18 HEADACHES montelukast AdvReac Insomnia Verified 06/02/25 18:18 PMFSH Past Medical History Medical History Screening for breast cancer Allergies Postoperative fever DVT prophylaxis Postoperative hemorrhage Post-op pain Delivery by elective section Encounter for supervision of normal in multigravida in third trimester Asthma Surgical History Surgical History Status post section History of x5 Family History Family History Mother Hypertension Family history of elevated blood lipids Family history of diabetes mellitus in first degree relative Thyroid disease Grandparent Cerebrovascular accident, Onset Age: 70 Family history of coronary artery disease, Onset Age: 85 Diabetes mellitus Cancer Acute myocardial infarction Thyroid disease Sibling Thyroid disease Social History Social History Smoking status: Never smoker Second hand tobacco smoke exposure: No Alcohol intake: current Substance use: never Do You Feel Safe in your Home?: Yes Lack of Transportation: No Lack of Food: Never True Current Housing: I Have Housing Concerned About Future Housing: No Difficulty Paying Gas/Electric Bills: No Difficulty Paying for Meds: No Currently Unemployed: No Difficulty w/ Childcare or Family Care: No Gender identity (if verbalized by the patient): Female Spiritual care concerns: No Comments At time of signature, I have reviewed and agree with nursing past medical, surgical, social and family history unless otherwise noted. Please see nursing chart for further information. There is no relevant family history pertinent to the presenting complaint Exam Narrative: GENERAL: Well-appearing, well-nourished, and in no acute distress. HEAD: Normocephalic, atraumatic. EYES: EOMI. No redness or drainage. Conjunctivae normal. ENT: Mucous membranes pink and moist. NECK: Normal AROM. CHEST: No respiratory distress. EXTREMITIES: Left foot: Healing Ecchymosis and mild edema to dorsum of foot extending to the base of toes 2 through 4. These areas are tender to palpation distal sensation intact in all 5 toes. Capillary refill normal. Pedal pulse n ormal. Full range of motion of toes and ankle. Ankle is nontender and without edema or ecchymosis. SKIN: Warm, dry, no rash. Capillary refill normal. Normal skin turgor. NEURO: No focal deficits. Alert and oriented x3. Gait steady. PSYCH: Normal affect. No signs of depression or anxiety. Course Course Level of Care: Express Care Visit Vital Signs Vital signs: Vital Signs Temperature 97.9 F 06/02/25 18: Pulse Rate 88 06/02/25 18: Respiratory Rate 16 06/02/25 18: Blood Pressure 136/84 06/02/25 18:25 Pulse Oximetry 99 06/02/25 18: Temperature 97.9 F 06/02/25 18: Pulse Rate 88 06/02/25 18:25 Respiratory Rate 16 06/02/25 18: Blood Pressure 136/84 06/02/25 18:25 Pulse Oximetry 99 07/20/25 18:25 Reviewed MDM - Extremity Injury (Lower) MDM Narrative Medical decision making narrative: 44-year-old female patient presents today an injury to the left foot that was sustained 1 week ago after kicking rock. She is having pain to the dorsum of the foot with some edema and healing ecchymosis as well as tingling to the 3rd toe. She has been using ice and ibuprofen and does see some improvement in her symptoms. Rates her pain 3/10. X-ray shows nondisplaced transverse fracture of the left 3rd proximal phalanx. Patient states she has a postop shoe at home and has been anamaria taping the area and declines both here today. Recommend PCP/Orthopedics/Podiatry follow-up in a few weeks to ensure proper healing. Vital signs stable. Anticipatory guidance given. Differential Diagnosis Differential diagnosis: Likely other (Foot fracture, contusion) Imaging Data Radiologist's impression: ITS Impressions Foot X-Ray 06/02/25 19:10 IMPRESSION: Nondisplaced transverse left third proximal phalanx fracture. Critical Care Time Critical Care Time Critical Care Time: No Discharge Plan Discharge Clinical Impression: Fracture of toe of left foot Qualifiers: Encounter type: initial encounter Toe: lesser toe Fracture type: closed Phalanx: proximal Fracture alignment: nondisplaced Qualified Code(s): S92.515A - Nondisplaced fracture of proximal phalanx of left lesser toe(s), initial encounter for closed fracture Patient Disposition: Home Condition: Stable Instructions: Toe Fracture (ED) Additional Instructions: Your x-ray shows a fracture in your middle toe. Anamaria tape and wear your hard- soled shoe for stability. Continue ibuprofen for pain if needed. Follow-up with your PCP or Orthopedics or Podiatry in a few weeks to ensure you continue to heal properly. Your blood pressure was elevated above 120/80 today at Urgent Care. This puts you above the threshold for follow up. Please schedule a followup visit with your personal physician as soon as possible, for further evaluation and treatm ent. Even blood pressure exceeding 120/80 may indicate pre-hypertension. Patient Language: Kazakh Prescriptions: No Action multivitamin Tablet 1 tablet PO DAILY albuterol sulfate [Ventolin HFA] 90 mcg/actuation HFA aerosol inhaler 2 puff INHALATION Q4H PRN (Reason: asthma) Qty: 6.7 2RF Claritin 10 mg tablet,chewable 10 mg PO DAILY fluticasone propionate [Flonase Allergy Relief] 50 mcg/actuation spray,suspension 1 spray intranasal DAILY Rx Instructions: administer into each nostril fluticasone propion-salmeterol [Advair Diskus] 250-50 mcg/dose blister with device 1 inh inhalation BID Qty: 60 0RF Follow-up/Referrals: Eliezer Tang DPM [Physician] - Jensen,Papa Westbrook DPM [Physician] - Ella Gotti, L[employer] OUT FORMER-C [Primary Care Provider] - Colin Vincent MD [Physician] - Time of Disposition: 19:23
== END 2025-06-02 19:25 | disposition home or self-care (01) ==
PROVIDERS: Emergency Provider Nurse Practitioner; PCP Clinical Nurse Specialist
DX: S92.515A Nondisplaced fracture of proximal phalanx of left lesser toe(s), initial encounter for closed fracture (principal); W22.8XXA Striking against or struck by other objects, initial encounter; J45.909 Unspecified asthma, uncomplicated
CPT/HCPCS: 73630; 99213; G0463